=== PATIENT | female | born 1970 | race African-American/Black ===

== ENCOUNTER 2020-08-09 14:20 | Inpatient (IN) | payer MEDICAID ==
[~2020-08-09] VITALS: Ht 167.6 cm; Wt 127.9 kg
--- NOTE | ~2020-08-09 | EMS ---
[address] [place] [address] EMS Patient Care Report Name: DYLON GAMBOA Room: [place] [address] ADM IN [facility]#: [id number] Admission: 08/09/20 Attend Phys: Lexx Cohen MD Discharge: Date of : 66 Report #: [id number] THIS REPORT FOR: //name// Report Transmitted: 08/09/2020 15:16 EMS Care Summary [facility] Incident [id number] @ 08/09/2020 13:34 Incident Location [address] [place] [address] Patient DYLON GAMBOA Female, 50 Years 1970 Patient Address [address] [place] [address] Patient History Stroke/CVA,Myocardial Infarction (NM),Novel Coronavirus (COVID-19), Patient Allergies Penicillin allergy,Sulfur allergy, Patient Medications Eliquis, Atorvastatin, Chief Complaint Stroke Disposition Transported Lights/[place] Dispatch Reason Sick Person Transported To [facility] Narrative Dispatch: [facility] was dispatched for a female patient experiencing generalized weakness. Med 1 copied tones and went en route emergent. Chief Complaint: Med 1 arrived on scene to find the patient lying supine in her [facility] [address] [place] [address] EMS Patient Care Report Name: DYLON GAMBOA Room: [address] IN [facility]#: [id number] Admission: 08/09/20 Attend Phys: Lexx Cohen MD Discharge: Date of : 66 Report #: [id number]. Patient has prominate left sided facial droop. Patient is alert and does not appear to be in any distress or discomfort. Patient is unable to answer questions appropriately and has slurred speech. Positive MEND and [place] exam. History of present illness/CRWO: Patient's family states the onset of symptoms were on 08/08/20 at approx. 9 am. The family states the patient has been unable to eat or drink in the last 24 hours without vomiting. Assessment: Airway: Clear, patent, and self maintained. Breathing: Clear, and equal bilaterally. Non labored. Circulation: Skin is pink, warm, and dry. Strong radial pulses. Disability: A&OX2, GCS 13. Exposures: No life threats were found. See "assessments" tab for further. Reason for ambulance: Patient experiencing generalized weakness, requesting EMS treatment and transport to the ED. Treatments: ALS assessment. Two IV attempts both unsuccessful. 12 lead EKG showing normal sinus rhythm. 2 liters O2 nasal cannula. Vitals monitored throughout transport. Summary: With the assistance of EMS and Fire, the patient placed onto the paulina machinery mover and carried out of the residence without incident. The patient was placed onto the cot, secured in place, and placed into the ambulance for transport. Med 1 went en route emergent to [place]. The patient was placed onto the monitor and an IV was attempted but unsuccessful. The patient's overall condition remained the same throughout transport. Radio report was given and a stroke activation was established. No further questions or orders were received. Med 1 arrived at destination and the patient was taken to CT where she was sheet transferred onto the CT scan. Report was given and signatures and paperwork were received. Med 1 returned back in service. Initial Vitals @14:24BP: 102/80, @14:06BP: 120/83,NM Suspected: false @14:13SpO2: 99,NM Suspected: false @14:25P: 110,BP: 108/65,NM Suspected: false @14:22 @14:00SpO2: 100,NM Suspected: false @13:54R: 18,BP: 130/90,GCS: 13,Temp: 98.7F,Glucose: 140,SpO2: 99,Revised Trauma: 12, [place] [address] EMS Patient Care Report Name: DYLON GAMBOA Room: [address] IN [facility]#: [id number] Admission: 08/09/20 Attend Phys: Lexx Cohen MD Discharge: Date of : 66 Report #: [id number] @13:46MENTAL:Confused,Person Oriented,Event Oriented,SKIN:HEENT:Head/Face: Facial Droop,LUNG SOUNDS:ABDOMEN:PELVIS//GI:EXTREMITIES:Capillary Refill: Right Upper: < 2 Sec,Left Leg: Weakness,Left Arm: Weakness,PULSE:Radial: 2+ Normal,NEURO:Facial Droop,Weakness Left-Sided,Slurred Speech,@14:10MENTAL:Confused,Person Oriented,Event Oriented,SKIN:HEENT:Head/Face: Facial Droop,LUNG SOUNDS:ABDOMEN:PELVIS//GI:EXTREMITIES:Left Leg: Weakness,Capillary Refill: Right Upper: < 2 Sec,Left Arm: Weakness,PULSE:Radial: 2+ Normal,NEURO:Weakness Left-Sided,Facial Droop,Slurred Speech, Impression Stroke Procedures @13:46ALS AssessmentResponse: UnchangedSucceeded@14:08Oxygen FlowRate: 2 Device: Nasal Cannula (NC) Response: UnchangedSucceeded@14:03Saline Lock 0cc (20 ga) Site: Hand-LeftResponse: UnchangedFailed@14:10Saline Lock 0cc (20 ga) Site: Antecubital-RightResponse: UnchangedFailed@14:2512-Lead ECGResponse: UnchangedSucceeded@14:0612-Lead ECGResponse: UnchangedSucceeded Timeline 13:34,Call Received 13:34,Dispatched 13:35,En Route 13:44,On Scene 13:45,At Patient 13:46,ALS Assessment,Response: UnchangedSucceeded, 13:54,BP: 130/90 M,PULSE: ,RR: 18 R,SPO2: 99 Ox,ETCO2: ,B,PAIN: ,GCS: 13, 13:59,Depart Scene 14:00,BP: / M,PULSE: ,RR: R,SPO2: 100 Ox,ETCO2: ,BG: ,PAIN: ,GCS: , 14:03,Saline Lock 0cc 20 ga Site: Hand-Left,Response: UnchangedFailed, 14:06,12-Lead ECG,Response: UnchangedSucceeded, 14:06,BP: 120/83 M,PULSE: ,RR: R,SPO2: Ox,ETCO2: ,BG: ,PAIN: ,GCS: , 14:08,Oxygen FlowRate: 2 Device: Nasal Cannula (NC) Response: UnchangedSucceeded, 14:10,Saline Lock 0cc 20 ga Site: Antecubital-Right,Response: UnchangedFailed, 14:13,BP: / M,PULSE: ,RR: R,SPO2: 99 Ox,ETCO2: ,BG: ,PAIN: ,GCS: , 14:22,BP: / M,PULSE: ,RR: R,SPO2: Ox,ETCO2: ,BG: ,PAIN: ,GCS: , 14:24,BP: 102/80 M,PULSE: ,RR: R,SPO2: Ox,ETCO2: ,BG: ,PAIN: ,GCS: , 14:25,12-Lead ECG,Response: UnchangedSucceeded, 14:25,BP: 108/65 M,PULSE: 110,RR: R,SPO2: Ox,ETCO2: ,BG: ,PAIN: ,GCS: , 14:28,At Destination 15:25,Call Closed Disclaimer v1.1 Copyright 2020 [place] [address] EMS Patient Care Report Name: DYLON GAMBOA Tyra Room: [address] IN [facility]#: [id number] Admission: 08/09/20 Attend Phys: Lexx Cohen MD Discharge: Date of : 66 Report #: [id number] This EMS Care Summary contains data elements from the applicable legal record (which may be displayed differently). It is designed to provide pertinent information for the following purposes: continuity of care, clinical quality, and state data reporting. The complete legal record is available to ED staff and administrators of the receiving hospital in [facility]'s Patient Tracker. All data is provided "as is."
--- NOTE | ~2020-08-09 | PROC ---
[address] [address] PROCEDURE REPORT Name: DYLON GAMBOA Room: [address] ADM IN M.R.#: [id number] Admission: 08/09/20 Attend Phys: Lexx Cohen MD Discharge: Date of : 66 Report #: [id number] THIS REPORT FOR: cc: FAM - No family physician/PCP FAM - No family physician/PCP ~ [facility],Medical Records Staff For GI report, please see the Provation report in Perceptive 7 content. By: [id number] Records Staff NATIVID[place] /DIANELYS
--- NOTE | ~2020-08-09 | PROC ---
[address] [address] PROCEDURE REPORT Name: DYLON GAMBOA Room: [address] IN M.R.#: [id number] Admission: 08/09/20 Attend Phys: Lexx Cohen MD Discharge: Date of : 66 Report #: [id number] THIS REPORT FOR: cc: FAM - No family physician/PCP FAM - No family physician/PCP ~ [facility],Medical Records Staff For Gi report, please see the Provation report in Perceptive 7 content. By: 1407Medical Records Staff NATIVID[place] /DIANELYS
[2020-08-09 14:30] VITALS: BP 110/67
[2020-08-09] MEDS ORDERED: ELIQUIS2.5 MG (15:06)
[2020-08-09] MEDS ORDERED: LIPITOR10 MG PO (15:06)
[2020-08-09 15:11] LABS: HEMATOCRIT 36.2 % (37.0-47.0); HEMOGLOBIN 11.7 gm/dL (12.0-15.0); MCH 28.4 pg (26.0-34.0); MCHC 32.2 g/dL (28.0-37.0); NUCLEATED RBCS 0 /100WBC; PLATELET COUNT* 353 thou/uL (150-400); RBC 4.12 mil/uL (4.20-5.00); RDW-CV 15.2 % (10.5-14.5); WBC 20.7 thou/uL (4.0-11.0)
[2020-08-09 15:22] LABS: CALCIUM 8.9 mg/dL (8.5-10.1)
[2020-08-09 15:23] LABS: APTT 21.2 Seconds (25.0-31.3); INR 1.1; PROTIME 11.8 Seconds (9.20-11.50)
[2020-08-09 15:25] LABS: POTASSIUM 2.6 mmol/L (3.5-5.1)
[2020-08-09 15:27] LABS: ALBUMIN 2.3 g/dL (3.4-5.0); TOTAL PROTEIN 6.3 g/dL (6.4-8.2)
[2020-08-09 15:31] LABS: ABSOLUTE EOSINOPHILS 0.2 thou/uL (0.0-0.7); ABSOLUTE LYMPHOCYTES 3.7 thou/uL (0.8-5.3); ABSOLUTE MONOCYTES 0.2 thou/uL (0.0-1.2); ABSOLUTE NEUTROPHILS 16.6 thou/uL (1.6-8.1); ATYPICAL LYMPHS 1 %; PLATELET ESTIMATE ADEQUATE
--- NOTE | 2020-08-09 16:15 | NUR ---
PT'S SISTER,RUSTY IS PRESENT AT THIS TIME. RUSTY STATED THAT PT "HAD A HEART ATTACK LAST YEAR AND HAS HAD SEVEN STROKES". PT'S SISTER,RUSTY ALSO STATED THAT SHE "HAD A FISTULA PLACED IN HER RT ARM LAST YEAR BUT IT HAS NEVER WORKED AND IT HAS NEVER BEEN ACCESSED". PT'S SISTER STATED THAT "LAST YEAR, SHE WAS AT [employer] FOR HER [place] LAST YEAR AND WAS DROPPED OFF AT MY HOUSE WHEN SHE LEFT [employer]EARCH". PT'S SISTER STATES THAT SHE "IS HER PRIMARY CAREGIVER". PT'S SISTER ALSO STATED THAT SHE "WORKS FOR A HOME HEALTHCARE SERVICE". PT'S SISTER STATES THAT SHE "TRIED TO CALL HER HOME HEALTHCARE SERVICE TO HELP WITH MY SISTER TODAY BUT I COULDN'T GET AHOLD OF ANYONE SO I CALLED THE DIVISION OF SENIOR SERVICES". RUSTY STATED THAT SHE SPOKE WITH "MILLY BRAXTON [phone]". RUSTY STATED THAT WE "CAN CALL MILLY IF WE NEED MORE INFORMATION".
[2020-08-09] MEDS ORDERED: LOPRESSOR50 MG PO (16:33)
[2020-08-09] MEDS ORDERED: LIPITOR 20 MG T20 M1 PO (16:33)
[2020-08-09] MEDS ORDERED: ELIQUIS5 MG PO (16:33)
--- NOTE | 2020-08-09 17:00 | NUR ---
THIS NURSE NOTIFIED DR. GORDON OF FISTULA PRESENT TO R UPPER ARM. PER DR. GORDON "IT IS OKAY TO USE IVs IN THAT ARM".
[2020-08-09 19:00] VITALS: BP 114/72
[2020-08-09 20:57] VITALS: BP 92/72
[2020-08-09 21:15] VITALS: BP 105/70
[2020-08-10 00:05] VITALS: BP 111/68
[2020-08-10 05:03] VITALS: BP 130/82
[2020-08-10 06:18] LABS: URINE BLOOD 2+ (Negative); URINE CLARITY CLOUDY; URINE COLOR YELLOW; URINE GLUCOSE-RANDOM NEGATIVE (Negative); URINE KETONES TRACE (Negative); URINE NITRITE-REFLEX NEGATIVE (Negative); URINE PROTEIN 3+ (Negative); URINE SPECIFIC GRAVITY 1.025 (1.005-1.030); URINE UROBILINOGEN 0.2 E.U./dl (0.2-1.0)
[2020-08-10 06:32] LABS: URINE BILIRUBIN 1+ (Negative); URINE LEUKOCYTES-REFLEX 2+ (Negative)
[2020-08-10 06:37] LABS: ICTOTEST (BILI CONFIRMATORY) Negative (Negative)
[2020-08-10 07:12] LABS: SQUAMOUS >10 Many /LPF (0-3)
[2020-08-10 07:14] LABS: CASTS None Seen /LPF (None Seen); URINE RBC 3-10 Few /HPF (0-2); URINE WBC-REFLEX >25 Many /HPF (0-5)
[2020-08-10 07:15] LABS: CRYSTALS None Seen /LPF (None Seen); YEAST-REFLEX Present (None Seen)
--- NOTE | 2020-08-10 07:15 | NUR ---
CHANGE OF SHIFT REPORT GIVEN PATIENT SEEN AT BEDSIDE, IN BED ASSUMED PATIENT CARE
[2020-08-10 07:16] LABS: RENAL EPITHELIAL CELLS 0-3 Few /LPF (None Seen)
[2020-08-10 08:00] VITALS: BP 128/62
--- NOTE | 2020-08-10 08:41 | NUR ---
RECEIVED PT FROM ED AT APPROX 2114. PT IS AWAKE, ORIENTED TO SELF, ABLE TO FOLLOW SIMPLE COMMANDS, ABLE TO ANSWER YES AND NO QUESTIONS. PT IS RACING ST ON THE APPEALS SPECIALIST. NIH DONE CHARTED. PT MAINTAINED NPO FOR SPEECH EVAL. ADMISSION ASSESSMENT DONE AND CHARTED. POSITION CHANGES DONE. CALL LIGHT WITHIN REACH. PT IS CLOSELY MONITORED. ELECTROLYTE REPLETION IN PROGRESS.
[2020-08-10 09:41] LABS: ABSOLUTE BASOPHILS 0.1 thou/uL (0.0-0.2); ABSOLUTE EOSINOPHILS 0.1 thou/uL (0.0-0.7); ABSOLUTE LYMPHOCYTES 4.1 thou/uL (0.8-5.3); ABSOLUTE NEUTROPHILS 17.7 thou/uL (1.6-8.1); BASOPHILS 0.5 %; EOSINOPHILS 0.4 %; HEMATOCRIT 33.9 % (37.0-47.0); HEMOGLOBIN 10.6 gm/dL (12.0-15.0); LYMPHOCYTES 17.7 %; MCH 28.2 pg (26.0-34.0); MCHC 31.3 g/dL (28.0-37.0); MCV 89.9 fL (80.0-100.0); MONOCYTES 4.2 %; MPV 8.8 fl. (7.2-11.1); NUCLEATED RBCS 0 /100WBC; PLATELET COUNT* 316 thou/uL (150-400); POLYS 77.2 %; RBC 3.77 mil/uL (4.20-5.00); RDW-CV 15.1 % (10.5-14.5); WBC 22.9 thou/uL (4.0-11.0)
[2020-08-10 11:18] LABS: CHOLESTEROL 283 mg/dL (<200); HDL CHOLESTEROL 32 mg/dL (>40); LDL CHOLESTEROL 197 mg/dL (<100); SERUM ASSESSMENT Clear; TC:HDL 8.8 Ratio (Not establshd); TRIGLYCERIDE 273 mg/dL (<150); VLDL 55 mg/dL (<40)
--- NOTE | 2020-08-10 11:48 | NUR ---
CM ATTEMPTED TO SPEAK TO THE PT TO DISCUSS CM ASSESSMENT. PT AWAKE, BUT NOT RESPONDING TO QUESTIONS WHEN ASKED. CM CONACTED PT'S SISTER TO DISCUSS CM ASSESSMENT AND SHE INFORMS THAT THE PT RESIDES AT HOME WITH HER AND SHE PROVIDES TOTAL CARE (BATHING, DRESSING, TOILETING) FOR THE PT. PT'S SISTER INFORMS THAT THE PT IS NORMALLY ABLE TO FEED HERSELF. PT IS BEDBOUND AT HOME, PER THE SISTER 'SHE BELIEVES THAT SHE IS UNABLE TO MOVE HER LEGS'. PT HAS WHEELCHAIR, WALKER, AND CANE AT HOME. PT HAS 0 HX OF HH. PT HAS HX OF SNF PER SISTER THAT SHE 'HAD SPENT 8 YEARS AT A FACILITY IN [place] TRYING TO GET HER TO WALK'. PT'S SISTER INFORMS THAT THE PT WAS MORE ABLE BODIED PRIOR TO HAVING COVID IN JANUARY-MAR. PT ALSO DOES NOT HAVE A PCP PER SISTER 'PT'S PCP RECENTLY '. PT/OT/ST AU PENDING. CM WILL REMAIN AVAILABLE TO ASSIST AND FOLLOW NEEDED.
[2020-08-10 11:56] LABS: CALCIUM 8.6 mg/dL (8.5-10.1); CREATININE 5.1 mg/dL (0.6-1.3); POTASSIUM 3.5 mmol/L (3.5-5.1)
[2020-08-10 12:00] VITALS: BP 129/73
--- NOTE | 2020-08-10 14:40 | EKG ---
[place] [address] ELECTROCARDIOGRAM REPORT Name: DYLON GAMBOA Room: [address] ADM IN [facility]#: [id number] Admission: 08/09/20 Attend Phys: Lexx Cohen, Discharge: Date of : 66 Date of Service: 08/09/20 1449 Report #: [id number] THIS REPORT FOR: //name// [facility] ED Test Date: 2020-08-09 Test Time: 14:49:23 Pat Name: DYLON GAMBOA Department: Room: [facility] Gender: F Multifocal Button Generator: IVY : 1970 Requested By: Andres Nolasco Order Number: [id number] MD: Milo Kirkpatrick Measurements Intervals [place] Rate: 106 P: MO: QRS: -49 QRSD: 112 T: 32 QT: 384 QTc: 510 Interpretive Statements Sinus tachycardia Left axis deviation anterolateral infarct, old Prolonged QT interval Artifact in lead(s) I,II,aVR,aVL,V1 No previous ECG available for comparison Electronically Signed On 08-10-2020 14:40:00 OIL WELL SERVICE UNIT OPERATOR by Milo Kirkpatrick [email or web address] <ELECTRONICALLY SIGNED> By: Milo Kirkpatrick MD, FAC 08/10/20 1440 1449 1449 Milo Kirkpatrick MD, [facility] /EPI
[2020-08-10 15:58] VITALS: BP 130/73
[2020-08-10 21:00] VITALS: BP 143/80
[2020-08-11 03:06] LABS: GLYCOHEMOGLOBIN (HGB A1C) 5.2 % (4.8-5.6)
[2020-08-11 04:00] VITALS: BP 98/65
--- NOTE | 2020-08-11 05:33 | NUR ---
No acute event overnight. Beginning of shift pt yelling, confused. Pt refused PO meds, refused oral care. Around 2200 to 0500 pt able to get sleep. Reposition maintained. Antibiotic given per mar, IVF infusing as ordered. Safety precaution in placed.
[2020-08-11 07:30] VITALS: BP 123/71
[2020-08-11 08:27] LABS: ABSOLUTE BASOPHILS 0.1 thou/uL (0.0-0.2); ABSOLUTE EOSINOPHILS 0.2 thou/uL (0.0-0.7); ABSOLUTE LYMPHOCYTES 4.1 thou/uL (0.8-5.3); ABSOLUTE MONOCYTES 0.9 thou/uL (0.0-1.2); ABSOLUTE NEUTROPHILS 12.4 thou/uL (1.6-8.1); BASOPHILS 0.7 %; EOSINOPHILS 1.2 %; HEMATOCRIT 31.1 % (37.0-47.0); HEMOGLOBIN 9.9 gm/dL (12.0-15.0); LYMPHOCYTES 23.2 %; MCH 28.1 pg (26.0-34.0); MCHC 31.7 g/dL (28.0-37.0); MCV 88.6 fL (80.0-100.0); MPV 8.8 fl. (7.2-11.1); NUCLEATED RBCS 0 /100WBC; PLATELET COUNT* 301 thou/uL (150-400); POLYS 69.9 %; RBC 3.51 mil/uL (4.20-5.00); RDW-CV 15.2 % (10.5-14.5); WBC 17.7 thou/uL (4.0-11.0)
[2020-08-11 08:42] LABS: ALBUMIN 1.9 g/dL (3.4-5.0); ALKALINE PHOSPHATASE 101 U/L (46-116); ANION GAP 12 mmol/L (7-16); BUN 69 mg/dL (7-18); CALCIUM 8.2 mg/dL (8.5-10.1); CHLORIDE 110 mmol/L (98-107); CO2 27 mmol/L (21-32); CREATININE 4.6 mg/dL (0.6-1.3); GLUCOSE 105 mg/dL (70-99); POTASSIUM 3.2 mmol/L (3.5-5.1); SGOT 12 U/L (15-37); SODIUM 149 mmol/L (136-145); TOTAL BILIRUBIN 0.9 mg/dL (<0.1-1.0); TOTAL PROTEIN 5.6 g/dL (6.4-8.2)
[2020-08-11 08:55] LABS: SGPT < 6 U/L (30-65)
[2020-08-11 12:00] VITALS: BP 130/72
--- NOTE | 2020-08-11 18:57 | NUR ---
UNABLE TO OBTAIN IV ACCESS AFTER MULTIPLE ATTEMPTS BY MULTIPLE RN'S. NOTIFIED DR GORDON. ORDERS RECEIVED FOR CENTRAL LINE PLACEMENT AND CONSENT OBTAINED BY PATIENTS SISTER. ANESTHESIA CAME IN TO PLACE LINE BUT WAS UNABLE TO OBTAIN CENTRAL ACCESS SUCCESSFULLY. EXTERNAL JUGULAR PLACED IN PATIENT RIGHT JUGULAR. CONTINUOUS IV FLUIDS NOT INFUSING DUE TO THE NATURE OF THE IV ACCESS AND UNCERTAINTY OF PLACEMENT. PLANNING FOR BETTER ACCESS TOMORROW WITH SALES & SERVICE ASSOCIATE JEFF IS HERE.
[2020-08-11 21:00] VITALS: BP 133/72
[2020-08-12] VITALS: BP 140/71
[2020-08-12 04:00] VITALS: BP 139/78
[2020-08-12 04:44] LABS: ABSOLUTE BASOPHILS 0.1 thou/uL (0.0-0.2); ABSOLUTE EOSINOPHILS 0.4 thou/uL (0.0-0.7); ABSOLUTE LYMPHOCYTES 4.2 thou/uL (0.8-5.3); ABSOLUTE MONOCYTES 0.9 thou/uL (0.0-1.2); ABSOLUTE NEUTROPHILS 10.5 thou/uL (1.6-8.1); BASOPHILS 0.8 %; EOSINOPHILS 2.4 %; HEMATOCRIT 29.7 % (37.0-47.0); HEMOGLOBIN 9.2 gm/dL (12.0-15.0); LYMPHOCYTES 26.1 %; MCH 27.9 pg (26.0-34.0); MCHC 31.1 g/dL (28.0-37.0); MCV 89.7 fL (80.0-100.0); MONOCYTES 5.3 %; MPV 8.9 fl. (7.2-11.1); NUCLEATED RBCS 0 /100WBC; PLATELET COUNT* 295 thou/uL (150-400); POLYS 65.4 %; RBC 3.31 mil/uL (4.20-5.00); RDW-CV 15.3 % (10.5-14.5); WBC 16.1 thou/uL (4.0-11.0)
--- NOTE | 2020-08-12 05:20 | NUR ---
No acute event this shift. Pt refused oral meds. Pt not given IV antibiotic due to route unavailable. Pt plan to see catastrophe claims supervisor to check IV patency/ placed a central line. Pt sleep most of the night. Reposition Q2, VS stable. Will contine POC.
[2020-08-12 06:25] LABS: ALBUMIN 1.9 g/dL (3.4-5.0); ALKALINE PHOSPHATASE 97 U/L (46-116); ANION GAP 12 mmol/L (7-16); BUN 67 mg/dL (7-18); CALCIUM 8.7 mg/dL (8.5-10.1); CHLORIDE 110 mmol/L (98-107); CO2 26 mmol/L (21-32); CREATININE 4.6 mg/dL (0.6-1.3); GLUCOSE 75 mg/dL (70-99); POTASSIUM 3.5 mmol/L (3.5-5.1); SGOT 13 U/L (15-37); SGPT < 6 U/L (30-65); SODIUM 148 mmol/L (136-145); TOTAL BILIRUBIN 0.8 mg/dL (<0.1-1.0); TOTAL PROTEIN 5.4 g/dL (6.4-8.2)
[2020-08-12 08:00] VITALS: BP 127/62
--- NOTE | 2020-08-12 10:32 | NUR ---
Nutrition: Pt admitted with code stroke, slurred speech. Consult for wound. Pt has wound on LUE. Chopped diet, per ST. Wts are variable in [facility], bed wts, 239# and 217# - will follow trends. Labs: BG 107-75, BUN 67, cr 4.6, GFR 12, alb 1.9, prealb 15.2. H/o CVA, UT, CKD. Unknown renal baseline at this time. No meal intake records. 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 Will follow pe rprotocol. Consider mild risk. GOALS: >75% of meals consumed, wt stabilize. F/u 08/16/20.
--- NOTE | 2020-08-12 11:27 | NUR ---
CM INFORMED DURING PRIME ROUNDING OF THE PLAN OF CARE FOR THE PT. PHYSICIAN INFORMS THAT THE PT MAY NEED PLACEMENT AT D/C (LTC VS HOME). PT HAS MEDICAID ONLY INSURANCE AND IS UNABLE TO HAVE SNF PLACEMENT OR HH AT D/C. PT'S SISTER PROVIDED ALL CARES PRIOR TO ADMIT. CM WILL REMAIN AVAILABLE TO ASSIST AND FOLLOW FOR D/C PLANNING NEEDED.
[2020-08-12 12:00] VITALS: BP 129/78
[2020-08-12 16:11] VITALS: BP 120/73
--- NOTE | 2020-08-12 16:14 | 2DMMODE ---
[place] [address] 2 D/M-MODE ECHOCARDIOGRAM Name: YANG GAMBOAE Tyra Room: [address] IN .Tyra.#: [id number] Admission: 08/09/20 Attend Phys: Lexx Cohen, Discharge: Date of : 66 Date of Service: 08/12/20 1614 Report #: [id number] THIS REPORT FOR: cc: FAM - No family physician/PCP FAM - No family physician/PCP Maximilian Mcbride MD [facility] ~ APPROVED REPORT Study performed: 08/12/2020 13:56:12 EXAM: Comprehensive 2D, Doppler, and color-flow Echocardiogram Patient Location: In-Patient Room #: [facility] Status: routine BSA: 2.05 HR: 86 bpm BP: 127/62 mmHg Rhythm: NSR Other Information Study Quality: Good Indications CVA/TIA Echo Enhancing Agent Indication: Rule out Shunt Agent(s) / Amount(s) Used: Agitated Saline 10 cc 2D Dimensions IVSd: 10.45 (7-11mm) LVOT Diam: 20.56 (18-24mm) LVDd: 35.61 mm PWd: 8.12 (7-11mm) Ascending Ao: 27.57 (22-36mm) LVDs: 24.96 (25-40mm) Aortic Root: 29.22 mm Volumes Left Atrial Volume (Systole) LA ESV Index: 14.50 mL/m2 Aortic Valve AoV Peak Yvon.: 1.16 m/s AO Peak Gr.: 5.39 mmHg LVOT Max P.69 mmHg AO Mean Gr.: 3.03 mmHg LVOT Mean P.01 [place] [address] 2 D/M-MODE ECHOCARDIOGRAM Name: DYLON GAMBOA Room: [address] IN .R.#: [id number] Admission: 08/09/20 Attend Phys: Lexx Cohen, Discharge: Date of : 66 Date of Service: 08/12/20 1614 Report #: [id number] LVOT Max V: 0.65 m/s AO V2 VTI: 21.49 cm LVOT Mean V: 0.49 m/s PATRICK (VTI): 1.90 cm2 LVOT V1 VTI: 12.32 cm Mitral Valve E/A Ratio: 0.75 MV Decel. Time: 176.12 ms MV E Max Yvon.: 0.63 m/s MV PHT: 51.07 ms MVA (PHT): 4.31 cm2 TDI E/Lateral E': 12.60 E/Medial E': 10.50 Medial E' Yvon.: 0.06 m/s Lateral E' Yvon.: 0.05 m/s Pulmonary Valve PV Peak Yvon.: 0.85 m/s PV Peak Gr.: 2.89 mmHg Tricuspid Valve RAP Estimate: 5.00 mmHg TR Peak Gr.: 29.32 mmHg RVSP: 34.00 mmHg PA Pressure: 34.00 mmHg Left Ventricle The left ventricle is normal size. There is normal LV segmental wall motion. There is normal left ventricular wall thickness. Left ventricular systolic function is normal. The left ventricular ejection fraction is within the normal range. LVEF is 55-60%. Grade I - abnormal relaxation pattern. Right Ventricle The right ventricle is normal size. The right ventricular systolic function is normal. Atria The left atrium size is normal. The interatrial septum is intact with no evidence for an atrial septal defect. The right atrium size is normal. Aortic Valve The aortic valve is normal in structure. No aortic regurgitation is present. There is no aortic valvular stenosis. Mitral Valve The mitral valve is normal in structure. [place] [address] 2 D/M-MODE ECHOCARDIOGRAM Name: DYLON GAMBOA Room: [address] IN .R.#: [id number] Admission: 08/09/20 Attend Phys: Lexx Cohen, Discharge: Date of : 66 Date of Service: 08/12/20 1614 Report #: [id number] No evidence of mitral valve stenosis. Tricuspid Valve The tricuspid valve is normal in structure. Mild tricuspid regurgitation. estimated pa pressure 35 mm Hg Pulmonic Valve The pulmonary valve is normal in structure. There is no pulmonic valvular regurgitation. Great Vessels The aortic root is normal in size. IVC is normal in size and collapses >50% with inspiration. Pericardium There is no pericardial effusion. <Conclusion> LVEF is 55-60%. The interatrial septum is intact with no evidence for an atrial septal defect. Mild tricuspid regurgitation. estimated pa pressure 35 mm Hg <ELECTRONICALLY SIGNED> By: Maximilian Mcbride MD, FACC 08/12/20 1614 1614 1614 Maximilian Mcbride MD, FACC /INF
--- NOTE | 2020-08-12 18:09 | NUR ---
PT RESTING IN BED. REFUSES MEALS AND COVERS HER MOUTH WHEN FOOD OFFERED. DRINKS WATER. REFUSES ORAL CARE. PT RELUCTANT TO TAKE PILLS OR ALLOW STAFF TO REPOSITION HER BUT DOES SO AFTER SOME DISCUSSION. NSR. PT/OT WORKED WITH PT. CHU CATH DRAINING CLOUDY YELLOW URINE. IVF INFUSING. SISTER UPDATED ON PT STATUS. PT A&OX4 BUT FREQUENTLY CALLS OUT "HELP!" WILL NOT SAY WHAT SHE WANTS WHEN STAFF RESPONDS.
[2020-08-12 20:00] VITALS: BP 106/61
[2020-08-13] VITALS (8 sets, daily range): BP systolic 126–145; BP diastolic 70–90
[2020-08-13 04:14] LABS: ABSOLUTE BASOPHILS 0.1 thou/uL (0.0-0.2); ABSOLUTE EOSINOPHILS 0.5 thou/uL (0.0-0.7); ABSOLUTE LYMPHOCYTES 3.4 thou/uL (0.8-5.3); ABSOLUTE MONOCYTES 0.6 thou/uL (0.0-1.2); ABSOLUTE NEUTROPHILS 8.9 thou/uL (1.6-8.1); BASOPHILS 0.9 %; EOSINOPHILS 3.7 %; HEMATOCRIT 26.6 % (37.0-47.0); HEMOGLOBIN 8.5 gm/dL (12.0-15.0); LYMPHOCYTES 25.1 %; MCH 28.6 pg (26.0-34.0); MCV 89.3 fL (80.0-100.0); MONOCYTES 4.6 %; MPV 8.8 fl. (7.2-11.1); NUCLEATED RBCS 0 /100WBC; PLATELET COUNT* 274 thou/uL (150-400); POLYS 65.7 %; RBC 2.98 mil/uL (4.20-5.00); RDW-CV 15.4 % (10.5-14.5); WBC 13.5 thou/uL (4.0-11.0)
[2020-08-13 04:37] LABS: CALCIUM 8.3 mg/dL (8.5-10.1); POTASSIUM 3.3 mmol/L (3.5-5.1)
--- NOTE | 2020-08-13 07:05 | NUR ---
ASSUMED PT CARE AT APPROX 1930. PT IS AWAKE, ORIENTED TO SELF AND PLACE. PT IS ABLE TO ANSWER SOME QUESTIONS BUT REFUSES/UNABLE TO ANSWER MOST QUESTIONS. PT IS NOT IN DISTRESS, NO DESATURATIONS NOTED ON ROOM AIR. PT IS TRACING SR ON THE TAPER MACHINE. NO ACUTE CHANGES THROUGHOUT THIS SHIFT. CALL LIGHT WITHIN REACH. HOURLY ROUNDING DONE FOR PT SAFETY. HIGH FALL PRECAUTIONS IN PLACE.
--- NOTE | 2020-08-13 08:35 | NUR ---
WOUND NURSE: PATIENT SEEN TO ADDRESS SKINI LESIONS ON LEFT ARM AND AXILLARY AREA. SMALL ABRASION ON LEFT ARM MEASURES 1.0 X 1.0 X 0.1 CM AND CONTAINS PINK NONGRANULATING TISSUE AND NO DRAINAGE. LEFT AXILLARY ABRASION MEASURES 1.0 X 3.0 X 0.1 CM, CONTAINS PINK NONGRANULATING TISSUE, SMALL AMOUNT OF SEROUS DRAINAGE. PERIWOUND AREA PRESENTS WITH DARKENED PIGMENTED SKIN. PATIENT WILL NOT LEAVE AFFECTED AREA CROW AND ATTEMPTS TO SCRATCH AT THE AREA. PATIENT IS CONFUSED AND NONTEACHEABLE. APPLIED PHYTOPLEX AF TO THE AFFECTED AREA. WILL NOT ATTEMPT BANDAGE PATIENT WILL NOT LEAVE THE SITE ALONE. WILL ATTEMPT TO KEEP AREA COVERED WITH BEDDING TO PROTECT FROM SCRATCHING.
--- NOTE | 2020-08-13 14:59 | NUR ---
cm attempted to contact pt sister/caregiver, agel, to discuss discharge plan. vm is full so cm cannot leave vm.
--- NOTE | 2020-08-13 16:30 | NUR ---
CM SPK W/PT'S SISTER, RUSTY RE D/C PLAN. RUSTY INFOMRED CONSUELO FERNANDO W/[facility] [phone] & Nikolas W/[facility] [phone] (NIKOLAS HAS RETIRED AND IS NOT HELPING GET PT PLACED) ARE WORKING TO GET PT PLACED AT [facility] IN [facility] WHERE FAMILY LIVES. FERNANDO STATED SHE IS "NOT COMFORTABLE W HER RTRN'G HOME" D/T NOT BEING ABLE TO SAFELY EXIT HOME IN CASE OF EMERGENCY PT CANNOT WALK OR WONT SPEAK. PER FERNANDO, PT HAS NOT BEEN TO DOCTOR APPT SINCE PCP PASSED IN MAR 2020, AND PT HAS NOT HAD ANY OF HER MEDICATION "FOR HOW LONG?" PER FERNANDO, RUSTY STATED SHE CANNOT GET PT TO DOCTOR APPT D/T STEPS IN [place] AND NOT HAVING HELP TO TRANSPORT. FERNANDO HAD REFERRAL FOR [facility] AND [place], IN [place]. CM TO F/U WITH EACH FACILITY AND FAX CLINICALS NEEDED.
[2020-08-14 04:18] LABS: ABSOLUTE BASOPHILS 0.1 thou/uL (0.0-0.2); ABSOLUTE EOSINOPHILS 0.4 thou/uL (0.0-0.7); ABSOLUTE LYMPHOCYTES 3.8 thou/uL (0.8-5.3); ABSOLUTE MONOCYTES 0.5 thou/uL (0.0-1.2); ABSOLUTE NEUTROPHILS 6.1 thou/uL (1.6-8.1); BASOPHILS 0.8 %; EOSINOPHILS 3.7 %; HEMATOCRIT 24.7 % (37.0-47.0); HEMOGLOBIN 7.9 gm/dL (12.0-15.0); MCH 28.7 pg (26.0-34.0); MCHC 32.1 g/dL (28.0-37.0); MCV 89.6 fL (80.0-100.0); MPV 8.7 fl. (7.2-11.1); NUCLEATED RBCS 0 /100WBC; PLATELET COUNT* 263 thou/uL (150-400); POLYS 55.5 %; RBC 2.76 mil/uL (4.20-5.00); RDW-CV 15.4 % (10.5-14.5)
[2020-08-14 04:20] LABS: ALBUMIN 1.7 g/dL (3.4-5.0); ALKALINE PHOSPHATASE 80 U/L (46-116); ANION GAP 10 mmol/L (7-16); BUN 52 mg/dL (7-18); CALCIUM 8.1 mg/dL (8.5-10.1); CHLORIDE 106 mmol/L (98-107); CO2 25 mmol/L (21-32); CREATININE 3.5 mg/dL (0.6-1.3); GLUCOSE 80 mg/dL (70-99); POTASSIUM 4.2 mmol/L (3.5-5.1); SGOT 12 U/L (15-37); SGPT < 6 U/L (30-65); SODIUM 141 mmol/L (136-145); TOTAL BILIRUBIN 0.6 mg/dL (<0.1-1.0); TOTAL PROTEIN 4.8 g/dL (6.4-8.2)
--- NOTE | 2020-08-14 04:52 | NUR ---
ASSUMED PT CARE AT APPROX 1930. PT IS AWAKE, IS NOT IN DISTRESS, PT IS ABLE TO ANSWER SOME QUESTIONS BUT REFUSES/UNABLE TO ANSWER MOST QUESTIONS. NO DESATURATIONS NOTED ON ROOM AIR. PT IS TRACING SR ON THE AUTOMOTIVE ENGINEERING TEACHER. NO ACUTE CHANGES THROUGHOUT THIS SHIFT. CALL LIGHT WITHIN REACH. PT GETS AGITATED WHEN BEING TURNED/REPOSITIONED. WILL COVER MOUTH WHEN ORAL CARE IS OFFERED. PT IS ABLE TO REST WELL THIS SHIFT. HIGH FALL PRECAUTIONS IN PLACE. PT IS CLOSELY MONITORED.
--- NOTE | 2020-08-14 08:16 | NUR ---
CM FA[facility]ED [facility] RE[facility]ALS [facility]
--- NOTE | 2020-08-14 11:20 | NUR ---
CM INFORMED DURING PRIME ROUNDING OF THE PLAN OF CARE FOR THE PT. PHYSICIAN INFORMS OF PLAN TO D/C PT TO LTC TOMORROW. PRN CM FAXED REFERRALS TO [facility] AND [facility]. CM WILL REMAIN AVAILABLE TO ASSIST AND FOLLOW NEEDED.
[2020-08-14 11:23] VITALS: BP 142/87
--- NOTE | 2020-08-14 14:32 | NUR ---
cm faxed referrals to [facility] [phone] -f. and [facility] in [place]. [phone] -f.
--- NOTE | 2020-08-14 15:00 | NUR ---
PT RESTING.DOES YELL "HELP" FREQUENTLY T/O DAY BUT WHEN ASSESSED AND REQUESTS FULFILLED PT WILL CONTINUE TO YELL FOR HELP EVEN WHEN STILL IN ROOM NEXT TO PATIENT.APPEARS MORE BEHAVIORAL.VSS.VOMITING EPISODES CONTINUE UPON POSITIONING AND WHEN GIVEN DRINKS. SPEECH THERAPY EVAL:PT MAKES A kkAA NOISE AFTER SWALLING AND REPORTS PAIN WHEN SWALLOWING. PT MADE NPO UNTIL AM FOR VIDEO SWALLOW.KUB NEGATIVE. DUE TO WOUND RISK ASSESSMENT AND INABILITY TO REPOSITION PT WITHOUT EMESIS WOULD RECOMMEND LOW AIR LOSS MATTRESS/BARIATRIC FOR PROLONGED STAY. NOTHING FURTHER AT THIS TIME.TM
[2020-08-14 16:11] VITALS: BP 136/79
[2020-08-14 20:00] VITALS: BP 126/66
[2020-08-15 00:09] VITALS: BP 118/76
[2020-08-15 04:25] VITALS: BP 141/81
--- NOTE | 2020-08-15 05:19 | NUR ---
ASSUMED PT CARE AT APPROX 1930. PT IS AWAKE, STILL NOT WILLING TO TAKE PO MEDS, WILL YELL HELP BUT WILL NOT TELL WHAT SHE NEEDS MOST OF THE TIME. PT C/O HEADACHE, NOT RELIEVED AT FIRST BY 25mcg OF FENTANYL, DR GORDON INFORMED AND ONETIME 25mcg MORE OF FENTANYL ORDERED AND GIVEN PER SEP. IV METOPROLOL ADMINISTERED ALSO FOR TACHYCARDIA PT REFUSED TO TAKE PO MEDS. PT IS MAINTAINED ON NPO STATUS WELL. PT IS REPOSITIONED Q2H AND NEEDED FOR COMFORT. HIGH FALL PRECAUTIONS IN PLACE. PT IS CLOSELY MONITORED.
[2020-08-15 05:35] LABS: URINE BILIRUBIN NEGATIVE (Negative); URINE BLOOD 1+ (Negative); URINE CLARITY CLEAR; URINE COLOR YELLOW; URINE GLUCOSE-RANDOM NEGATIVE (Negative); URINE KETONES TRACE (Negative); URINE NITRITE-REFLEX NEGATIVE (Negative); URINE PROTEIN 2+ (Negative); URINE SPECIFIC GRAVITY 1.015 (1.005-1.030); URINE UROBILINOGEN 0.2 E.U./dl (0.2-1.0)
[2020-08-15 05:36] LABS: URINE LEUKOCYTES-REFLEX 3+ (Negative)
[2020-08-15 05:43] LABS: CASTS None Seen /LPF (None Seen); CRYSTALS None Seen /LPF (None Seen); MUCUS 0-3 Light strn/LPF (None Seen); SQUAMOUS 0-3 Few /LPF (0-3); URINE RBC 3-10 Few /HPF (0-2); YEAST-REFLEX Present (None Seen)
[2020-08-15 08:00] VITALS: BP 138/78
[2020-08-15 08:21] LABS: CALCIUM 8.2 mg/dL (8.5-10.1); CREATININE 3.4 mg/dL (0.6-1.3); POTASSIUM 4.7 mmol/L (3.5-5.1)
--- NOTE | 2020-08-15 11:59 | NUR ---
CM INFORMED DURING PRIME ROUNDING OF THE PLAN OF CARE FOR THE PT. PLAN FOR PT TO REMAIN INPT AT THIS TIME. PLAN FOR PT TO REMAIN ON IV ABT'S. PLAN TO PLACE PICC LINE FOR PT. CM CONTINUES TO ATTEMPT TO FIND LTC PLACEMENT FOR PT. CM RECIEVED A CALLBACK FROM [facility] WITH ADMISSIONS AT [facility] DECLINING PT. CM AWAITING CALLBACK FROM [facility] TO DETERMINE ABILITY TO ACCEPT PT AT D/C. CM WILL REMAIN AVAILABLE TO ASSIST AND FOLLOW NEEDED.
[2020-08-15 16:31] VITALS: BP 161/94
[2020-08-16 04:13] LABS: ABSOLUTE BASOPHILS 0.1 thou/uL (0.0-0.2); ABSOLUTE EOSINOPHILS 0.3 thou/uL (0.0-0.7); ABSOLUTE MONOCYTES 0.6 thou/uL (0.0-1.2); ABSOLUTE NEUTROPHILS 4.8 thou/uL (1.6-8.1); BASOPHILS 0.8 %; EOSINOPHILS 3.1 %; HEMATOCRIT 24.2 % (37.0-47.0); HEMOGLOBIN 7.8 gm/dL (12.0-15.0); MCH 28.6 pg (26.0-34.0); MCV 89.3 fL (80.0-100.0); MONOCYTES 6.5 %; MPV 7.9 fl. (7.2-11.1); NUCLEATED RBCS 0 /100WBC; PLATELET COUNT* 319 thou/uL (150-400); POLYS 48.6 %; RBC 2.71 mil/uL (4.20-5.00); RDW-CV 15.3 % (10.5-14.5); WBC 9.9 thou/uL (4.0-11.0)
[2020-08-16 04:36] LABS: ALBUMIN 1.8 g/dL (3.4-5.0); CALCIUM 8.4 mg/dL (8.5-10.1); CREATININE 3.4 mg/dL (0.6-1.3); MAGNESIUM 1.7 mg/dL (1.8-2.4); POTASSIUM 4.1 mmol/L (3.5-5.1); TOTAL BILIRUBIN 0.5 mg/dL (<0.1-1.0); TOTAL PROTEIN 4.8 g/dL (6.4-8.2)
[2020-08-16 05:12] VITALS: BP 141/81
[2020-08-16 08:00] VITALS: BP 136/51
--- NOTE | 2020-08-16 12:06 | NUR ---
CM INFORMED DURING PRIME ROUNDING OF THE PLAN OF CARE FOR THE PT. PLAN FOR PT TO GET PICC LINE PLACED FOR IV ABT'S. PLAN REMAINS FOR PT TO D/C TO LTC AT D/C. CM CONTINUING TO SECURE LTC PLACEMENT FOR PT. [facility] STILL REVIEWING LTC REFERRAL AND REQUESTING DPOA PAPERWORK FOR PT. CM SPOKE TO PT'S SISTER TO INFORM OF THE NEED TO BRING OR FAX COPY OF DPOA PAPERWORK. PT MAY BE HERE THROUGH THE WEEKEND PENDING PLACEMENT. CM WILL REMAIN AVAILABLE TO ASSIST AND FOLLOW NEEDED.
--- NOTE | 2020-08-16 13:46 | NUR ---
Nutrition: Reassessment. Pt eating chopped diet. D5@ 100mL. Alb 1.8, prealb 14.6. Wt stable, 217#. Will order Magic Cup for added kcal intake. Mild risk.
[2020-08-16 16:00] VITALS: BP 122/67
--- NOTE | 2020-08-16 16:17 | NUR ---
WOUND NURSE: PATIENT SEEN TO ADDRESS REQUEST FOR LOW AIRLOSS MATTRESS ORDERED BY DR. RICHARDSON. PATIENT APPEARS TO HAVE PSYCHOLOGICAL ISSUES WHEREAS SHE IS RESISTENT TO CARES AND COMBATIVE TOWARD NURSING STAFF AND REFUSING TO TURN IN BED AND UNABLE TO TURN HERSELF. PATIENT ALSO WITH LOW ANGELA SCORE AND LEFT SIDED PARALYSIS SO HIGH RISK FOR IMPAIRED SKIN INTEGRETY SHE ALREADY HAS BREAKDOWN. AGREE WITH NEED FOR LOW AIRLOSS MATTRESS. NURSING DESTINATION IMAGINATION COORDINATOR NOTIFIED WITH THIS REQUEST.
[2020-08-16 20:30] VITALS: BP 136/77
--- NOTE | 2020-08-16 20:46 | NUR ---
PT REFUSED SEVERAL VITAL ELEMENTS OF CARE TODAY. PT REFUSED NURSE TO SCAN BRACELET BY TRYING TO BITE ARM OF NURSE. PT C/O HEADACHE AND WAS TOLD THAT SHE COULD NOT RECEIEVE MEDICATION WITHOUT SCANNING BRACELET. PT WAS FINALLY COMPLIANT WITH MEDICATIONS IN AFTERNOON. PT ALSO REFUSED LOW AIR LOSS BED TO WOUND NURSE. WILL NEED TO REEDUCATE. PT DID NOT VOMIT T/O SHIFT AND THOUGH BURPED AND REPORTED BEING NAUSEOUS REPOSITIONING PROVIDED RELIEF. PT DID BEGIN TO SELF HARM TO ARM IN TANTRUM AND WAS EDUCATED ON CURRENT WOUNDS AND HOW SELF INFLICTED WOUNDS CAN BECOME INFECTED. WILL NEED REEDUCATING.PT STILL NOT EATING MUCH AT MEALS. NOTHING FURTHER
[2020-08-17] VITALS: BP 140/78
[2020-08-17 04:00] VITALS: BP 145/80
[2020-08-17 08:00] VITALS: BP 144/85
[2020-08-17 08:05] LABS: HEMATOCRIT 24.8 % (37.0-47.0); HEMOGLOBIN 7.8 gm/dL (12.0-15.0); MCH 28.2 pg (26.0-34.0); MCHC 31.4 g/dL (28.0-37.0); MCV 89.8 fL (80.0-100.0); MPV 8.4 fl. (7.2-11.1); RBC 2.76 mil/uL (4.20-5.00); RDW-CV 15.6 % (10.5-14.5); WBC 9.9 thou/uL (4.0-11.0)
[2020-08-17 08:46] LABS: CALCIUM 8.4 mg/dL (8.5-10.1); CREATININE 3.2 mg/dL (0.6-1.3); MAGNESIUM 1.9 mg/dL (1.8-2.4); POTASSIUM 4.7 mmol/L (3.5-5.1)
--- NOTE | 2020-08-17 10:04 | NUR ---
RECEIVED REPORT AROUND 0715. ASSUMED CARE. IV INTACT RIGHT FOREARM. HEART MONITOR ATTACHED AT SR. VS AND ASSESSMENT CHARTED. PT LYING IN BED. STATED "I HAVE NAUSEA" DENIED WANTING ANYTHING TO HELP WITH THAT. MEDS CRUSHED. GIVEN PER SEP. PT COMPLAINED OF BACK. DENIED WANTING ANYTHING. CALL LIGHT WITHIN REACH. WILL CONTINUE TO MONITOR.
[2020-08-17 16:49] VITALS: BP 156/85
--- NOTE | 2020-08-17 17:39 | NUR ---
NO NEW CHANGES. IV INTACT. HEART MONITOR ATTACHED AT . PT CHANGED TO LOW AIR MATRESS TODAY. PT YELLED OUT "HELP" THROUGHOUT SHIFT, INSTEAD OF USING CALL LIGHT. ORIENTED PT TO CALL LIGHT. PT REPEATED "THE BED IS EATING ME" THROUGHOUT SHIFT. MEDS GIVEN PER SEP. HOURLY ROUNDING PERFORMED. Q2 TURNS. PT LYING IN BED. PT DOES REPEATEDLY SAY "NO" TO THINGS. CALL LIGHT WITHIN REACH. WILL CONTINUE TO MONITOR.
[2020-08-17 20:36] VITALS: BP 161/80
[2020-08-18] VITALS: BP 122/77
[2020-08-18 03:50] VITALS: BP 155/80
[2020-08-18 07:51] VITALS: BP 165/97
--- NOTE | 2020-08-18 09:40 | NUR ---
RECEIVED REPORT AROUND 0715. ASSUMED CARE. IV INTACT RIGHT FOREARM. HEART MONITIOR ATTACHED AT . PT LYING IN BED. LOW AIR MATTRESS BED INTACT. CHU INTACT. PT STATED "LOWER BACK, 7" FOR PAIN. CRUSHED MEDS IN ICECREAM MIXED WITH STRAWBERRY ENSURE. PT SPIT IT OUT. STARTED DRY HEAVING. DID NOT ATTEMPT SECOND BITE. PT DID NOT EAT MUCH BREAKFAST. PT STATES "I'M JUST NOT FEELING WELL." PT DID SPIT UP SOME MORE CONTENT AFTER SPITTING OUT ICECREAM. TRIED TO DRINK SOME NECTAR THICKENED COFFEE. DID NOT SETTLE WELL. CALL LIGHT WITHIN REACH. WILL CONTINUE TO MONITOR.
[2020-08-18 12:00] VITALS: BP 139/85
[2020-08-18 16:00] VITALS: BP 137/82
--- NOTE | 2020-08-18 16:54 | NUR ---
NO NEW CHANGES. PT LYING IN BED. Q2 TURNS. CHU INTACT. IV INTACT. HEART MONTIOR ATTACHED AT SR. PT TAKES HEART MONITOR OFF REPEATEDLY THROUGHOUT SHIFT. PT REFUSED TO EAT. PT CAN FEED SELF. PT STILL HAVING SOME NAUSEA. MEDS GIVEN PER MAR. HOURLY ROUNDING PERFORMED. PT STATED "THE BED IS EATING ME" THROUGHOUT SHIFT. CALL LIGHT WITHIN REACH. WILL CONTINUE TO MONITOR.
[2020-08-18 23:29] VITALS: BP 147/85
[2020-08-19 04:25] VITALS: BP 144/84
[2020-08-19 04:43] LABS: HEMATOCRIT 27.5 % (37.0-47.0); HEMOGLOBIN 8.6 gm/dL (12.0-15.0); MCH 28.2 pg (26.0-34.0); MCHC 31.2 g/dL (28.0-37.0); MCV 90.3 fL (80.0-100.0); MPV 8.5 fl. (7.2-11.1); RBC 3.05 mil/uL (4.20-5.00); RDW-CV 15.8 % (10.5-14.5)
[2020-08-19 05:00] LABS: ALBUMIN 1.8 g/dL (3.4-5.0); CALCIUM 8.7 mg/dL (8.5-10.1); CREATININE 2.7 mg/dL (0.6-1.3); MAGNESIUM 1.6 mg/dL (1.8-2.4); POTASSIUM 4.9 mmol/L (3.5-5.1); TOTAL BILIRUBIN 0.4 mg/dL (<0.1-1.0); TOTAL PROTEIN 4.9 g/dL (6.4-8.2)
[2020-08-19 08:00] VITALS: BP 187/74
--- NOTE | 2020-08-19 10:04 | NUR ---
WOUND NURSE: CHECKED GLUTEAL AREA FOR POSSIBLE WOUNDS AND NONE NOTED WITH INTACT PINK SCAR TISSUE NOTED. LEFT AXILLARY AREA PIGMENTED BUT INTACT SKIN WITH PINK SCAR TISSUE NOTED HERE ALSO. TREATED FOR YEAST AND PATIENT NOW SAYS NO MORE ITCHING TO LEFT ARM AND AXILLA. PATIENT IS NOT TEACHEABLE. ON LOW AIRLOSS MATTRESS DUE TO REFUSAL TO TURN AND HISTORY OF LEFT SIDED PARALYSIS.
--- NOTE | 2020-08-19 12:58 | NUR ---
CM INFORMED DURING PRIME ROUNDING OF THE PLAN OF CARE FOR THE PT. PLAN FOR PT TO REMAIN INPT AT THIS TIME SHE CONTINUES TO NEED IV ABT'S AT THIS TIME. CM RECIEVED A CALL FROM [facility] WITH [facility] AND THEY REQUEST CLINICAL UPDATE WELL PHYSICIAN'S SIGNATURE ON LETTER OF INCAPACITY. PHYSICIAN AGREES TO ASSIST WITH THIS. CM WILL REMAIN AVAILABLE TO ASSIST AND FOLLOW NEEDED.
[2020-08-19 15:29] VITALS: BP 131/65
--- NOTE | 2020-08-19 18:13 | NUR ---
PT RESTING ON HER DAVE BED. PT HAS REFUSED TO TAKE ANY PO FOOD OR FLUIDS. PT HAS BEEN GIVEN REPLACEMENT MAGNESUIM IV. PT HAS A SALINE LOCK IN HER RIGHT FOREARM. DRESSING CLEAN DRY AND INTACT. PT HAS BEEN TURNED AND REPOSITIONED EVERY 2 HOURS AND PRN. PT WILL BE MOVED UP TO THE 3RD FLOOR AFTER SHIFT CHANGE. WILL CONTINUE TO MONITOR PLAN OF CARE.
--- NOTE | 2020-08-19 18:19 | NUR ---
THIS NURSE AGREES WITH ASSESSMENT
[2020-08-19 22:12] VITALS: BP 153/94
--- NOTE | 2020-08-20 00:41 | NUR ---
AR REFUSED ALL MEDS, ATTEMPTED TO OFFER CRUSHED IN FOOD OR DRINK, EXPLAINED BENEFITS OF MEDICATIONS. SHE REFUSED TO EVEN ATTEMPT TO TRY ANY. SHE REFUSED ANY ATTEMPTS AT OFFERING FLUIDS TO DRINK. SHE BECAME AGGRESSIVE WHEN I TRIED TO LOOK AT HER ARM AND PULLED AWAY FROM ME. SHE CALLS OUT FOR HELP AND WE KEEP TURNING HER FOR COMFORT. SHE REFUSES ANY PAIN MEDICATION AT THIS TIME. I TRIED TO COAX WITH PUDDING, SHE WONT EVEN TRY. ATTEMPTS OF AN IV DIFFICULT WELL.
[2020-08-20 08:00] VITALS: BP 165/92
[2020-08-20 16:04] VITALS: BP 130/85
[2020-08-20 16:20] VITALS: BP 138/85
--- NOTE | 2020-08-20 17:07 | NUR ---
THIS NURSE AGREES WITH ASSESSMENT
--- NOTE | 2020-08-20 17:22 | NUR ---
PT CONTINUES TO REFUSE HER MEDICATION. PT WAS DOWN TO THE GI LAB FOR EGD PER BED. GI LAB PLACED A 20GUAGE IN HER RIGHT FOREARM, FLUSHES WELL. PT CONTINUES TO YELL HELP ME ALL THE DAY LONG, BUT CAN NOT TELL YOU WAHT SHE NEEDS HELP WITH. VSS AFEBRILE. WILL CONTINUE TO MONITOR PLAN OF CARE.
--- NOTE | 2020-08-20 18:10 | NUR ---
DISCUSSED WITH IN PRIME TIME ROUNDS. PT.GONE FOR EGD. PLAN IS TO KEEP PT.1-2 MORE DAYS FOR IV ANTIBIOTIC AND TO MAKE SURE PT.CAN TAKE ADEQUATE PO FLUIDS. ATTEMPTED TO CALL SISTER AND TO LEAVE VM. UNABLE TO DO SO.
[2020-08-20 19:49] VITALS: BP 147/89
[2020-08-21 00:47] VITALS: BP 163/85
[2020-08-21 04:28] LABS: HEMATOCRIT 24.5 % (37.0-47.0); HEMOGLOBIN 7.9 gm/dL (12.0-15.0); MCH 28.4 pg (26.0-34.0); MCHC 32.2 g/dL (28.0-37.0); MCV 88.2 fL (80.0-100.0); MPV 8.2 fl. (7.2-11.1); RBC 2.77 mil/uL (4.20-5.00); RDW-CV 15.7 % (10.5-14.5); WBC 16.7 thou/uL (4.0-11.0)
[2020-08-21 04:41] VITALS: BP 126/81
--- NOTE | 2020-08-21 04:46 | NUR ---
PT ORIENTED TO SELF, CONFUSED, IRRITABLE, AND UNCOOPERATIVE. PT HAS REFUSED ALL PO MEDICATIONS THIS SHIFT, DR. GORDON NOTIFIED AT APPROX 2311. PT HAS REFUSED PO FLUIDS. IV IS SALINE LOCKED. URINARY CATHETER IN PLACE, PT REPOSITIONED Q2H. PT HAS SLEPT ON AND OFF THROUGHOUT SHIFT. WILL CONTINUE TO MONITOR.
[2020-08-21 05:01] LABS: ALBUMIN 1.6 g/dL (3.4-5.0); CALCIUM 8.6 mg/dL (8.5-10.1); CREATININE 2.6 mg/dL (0.6-1.3); MAGNESIUM 1.5 mg/dL (1.8-2.4); POTASSIUM 4.6 mmol/L (3.5-5.1); TOTAL BILIRUBIN 0.4 mg/dL (<0.1-1.0); TOTAL PROTEIN 5.1 g/dL (6.4-8.2)
[2020-08-21 08:00] VITALS: BP 172/100
[2020-08-21 16:00] VITALS: BP 129/67
--- NOTE | 2020-08-21 17:25 | NUR ---
THIS NURSE AGREES WITH ASSESSMENT
--- NOTE | 2020-08-21 18:17 | NUR ---
PT RESTING ON HER BED AND REFUSED TO TAKE ANY MEDICATIONS OR EAT ANY BREAKFAST, LUNCH AND DINNER. PT WOULD COVER HER MOUTH AND SMACK HER HAND AT YOU. PT HAS SALINE LOCK IN RIGHT FOREARM, FLUSHES WELL. BP BETTER THIS AFTERNOON AFTER GIVING THE HYDRALIZINE THIS AM. PT TURNED EVERY 2 HOURS. VSS AFEBRILE. WILL CONTINUE TO MONITOR PLAN OF CARE.
[2020-08-21 19:48] VITALS: BP 131/71
[2020-08-22] VITALS: BP 149/87
[2020-08-22 04:00] VITALS: BP 151/88
--- NOTE | 2020-08-22 07:43 | NUR ---
PATIENT'S IV SALINE LOCKED. PT CONTINUES TO REFUSE ANY ORAL INTAKE; ALL PO MEDS AND ORAL FLUIDS REFUSED. PT TACHYCARDIC, PRN METOPROLOL IV GIVEN AT 2003 AND 219. PT DENIES ANY PAIN. URINARY CATHETER IN PLACE, PT REPOSITIONED Q2H.
[2020-08-22 07:45] VITALS: BP 129/84
[2020-08-22 14:21] LABS: URINE BILIRUBIN NEGATIVE (Negative); URINE BLOOD 2+ (Negative); URINE CLARITY CLEAR; URINE COLOR YELLOW; URINE GLUCOSE-RANDOM NEGATIVE (Negative); URINE KETONES NEGATIVE (Negative); URINE NITRITE-REFLEX NEGATIVE (Negative); URINE PROTEIN 2+ (Negative); URINE UROBILINOGEN 0.2 E.U./dl (0.2-1.0)
[2020-08-22 14:24] LABS: URINE LEUKOCYTES-REFLEX 2+ (Negative)
[2020-08-22 14:26] LABS: SQUAMOUS 0-3 Few /LPF (0-3); URINE WBC-REFLEX >25 Many /HPF (0-5)
[2020-08-22 14:27] LABS: CASTS None Seen /LPF (None Seen); CRYSTALS None Seen /LPF (None Seen); MUCUS None Seen strn/LPF (None Seen); YEAST-REFLEX Present (None Seen)
--- NOTE | 2020-08-22 14:43 | NUR ---
FAXED DA12C AND INCAPACITY FORM SIGNED BY TO BERT/ASAD LIASON FOR [facility]. TOLD BERT PT.WAS NOT READY FOR DISCHARGE TODAY, PER . COPY OF DPOA ON CHART AND LISTS IVELISSE GAMBOA,SISTER AGENT.SPOKE WITH HER AT [phone]. INFORMED HER THAT [facility] CAN ACCEPT HER SISTER WHEN SHE IS STABLE FOR DISCHARGE. TOLD HER DID NOT DISCHARGE HER TODAY. SHE IS SPITTING OUT MEDS, NOT TAKING THEM,ETC. WANTS TO SEE IF SHE MIGHT GET MORE AGREEABLE. TOLD HER SHE WAS UP IN THE CHAIR TODAY BY P.T. SHE THANKED ALL THE NURSES FOR TAKING SUCH GOOD CARE OF HER.
[2020-08-22 16:14] VITALS: BP 123/69
--- NOTE | 2020-08-22 17:07 | PATH ---
[address] [address] PATHOLOGY RPT PROCEDURE Name: SHANTANU GAMBOA Tyra Room: [address] IN M.R.#: [id number] Admission: 08/09/20 Date of : 66 Discharge: Report #: [id number] Path Case #: [id number] [facility] Accession Number: [id number] . 01 Material submitted: . gastrointestinal site - GASTRIC BIOPSY . 01 Clinical history: . EGD . 02 Diagnosis: Gastric biopsy "gastric biopsy": - Mild chronic reactive gastropathy with mild chronic inflammation. - The immunoperoxidase stain for Helicobacter pylori is negative. (SHA:pit 08/22/2020) QTP 08/22/2020 1155 Local . 02 Electronically signed: . Mitesh Mccray MD, Pathologist NPI- [id number] . 01 Gross description: . The specimen is received in formalin, labeled "Shantanu Gamboa, gastric biopsy". Received is a segment of pale lazcano soft tissue measuring 0.4 cm in maximum dimensions. The specimen is submitted entirely in cassette A1. (CAA; 08/21/2020) QAC/QAC 08/21/2020 1037 Local . 02 Pathologist provided ICD-10: K29.50, K31.9 . 02 CPT . 574704, [id number] Specimen Comment: A courtesy copy of this report has been sent to [phone], [phone] Specimen Comment: [phone] Specimen Comment: Report sent to / DR GORDON Performed at: [address], [place] [id number] MD Mitesh Mccray MD Phone: [phone] Performed at: [address] [id number] MD Bailey Blank MD Phone: [phone]
[2020-08-22 18:39] VITALS: BP 130/75
--- NOTE | 2020-08-22 18:56 | NUR ---
PT REMAINS CONFUSED. PT AGITATED YELLING. PT GIVEN PRN VALIUM. PT BP AND PULSE DOCUMENTED AND IV METOPROLOL GIVEN. VSS. PT Q 2 TURNS. PT CONTINUES TO REFUSE ANYTHING BY MOUTH. PUSHES HANDS AWAY. STATES NO. PT HAS A DRY MOUTH. REFUSED ORAL CARE. WILL CONTINUE TO MONITOR.
[2020-08-22 21:19] VITALS: BP 116/77
[2020-08-23] VITALS (7 sets, daily range): BP systolic 120–142; BP diastolic 70–88
[2020-08-23 05:04] LABS: HEMATOCRIT 24.5 % (37.0-47.0); HEMOGLOBIN 7.9 gm/dL (12.0-15.0); MCHC 32.3 g/dL (28.0-37.0); MCV 89.6 fL (80.0-100.0); MPV 8.7 fl. (7.2-11.1); NUCLEATED RBCS 0 /100WBC; PLATELET COUNT* 359 thou/uL (150-400); RBC 2.74 mil/uL (4.20-5.00); RDW-CV 16.5 % (10.5-14.5); WBC 22.3 thou/uL (4.0-11.0)
[2020-08-23 06:51] LABS: ABSOLUTE LYMPHOCYTES 3.8 thou/uL (0.8-5.3); ABSOLUTE MONOCYTES 0.4 thou/uL (0.0-1.2); ABSOLUTE NEUTROPHILS 18.1 thou/uL (1.6-8.1)
[2020-08-23 06:52] LABS: HYPOCHROMASIA 1+; MICROCYTES 1+; PLATELET ESTIMATE ADEQUATE
[2020-08-23 06:53] LABS: SCHISTOCYTES Occasional; TARGET CELLS Occasional
--- NOTE | 2020-08-23 10:30 | NUR ---
WBC INCREASED,URINE AND BLOOD CX PENDING. ID TO SEE. NO DISCHARGE TODAY OR OVER WEEKEND. BERT/SANDY PERALES NOTIFIED.
--- NOTE | 2020-08-23 10:40 | CON ---
[address] [address] CONSULTATION Name: DYLON GAMBOA Room: [address] ADM IN M.R.#: [id number] Admission: 08/09/20 Attend Phys: Lexx Cohen MD Discharge: Date of : 66 Report #: [id number] THIS REPORT FOR: cc: FAM - No family physician/PCP FAM - No family physician/PCP ~ Roberto Carlos Escobedo MD DATE OF SERVICE: 08/10/2020 CONSULTING PHYSICIAN: Lexx Cohen MD REASON FOR CONSULTATION: Elevated creatinine. HISTORY OF PRESENT ILLNESS: A 50-year-old female who was admitted with altered mental status. UA looks possibly infected. Neurology has been consulted for altered mental status. She was noted to have a creatinine of 5, but previous records are not available. Outpatient records have been requested. Baseline creatinine is unknown. It is suspected that she has some underlying chronic kidney disease. She is a very poor historian. At this time, she is not able to verbally give much in the way of history. History is obtained largely through chart review. REVIEW OF SYSTEMS: Constitutional, psych, heme, eyes, ENT, respiratory, cardiac, GI, , endocrine, all negative except as documented above and as best can be ascertained. PAST MEDICAL HISTORY: Suspected chronic kidney disease, history of CVA. SOCIAL HISTORY: Tobacco use unknown. FAMILY HISTORY: Not pertinent to current clinical case. PHYSICAL EXAMINATION: VITAL SIGNS: Blood pressure is 120/62, pulse 113, respirations 20, temperature 36.6. GENERAL: No acute distress. EYES: Opens eyes. EARS: Externally normal. CARDIOVASCULAR: Tachycardic. LUNGS: Diminished breath sounds. ABDOMEN: Soft. MUSCULOSKELETAL: Nontender. PSYCHIATRIC: Awake, alert. LABORATORY DATA: White cell count 23, hemoglobin 10.6, platelets 316[place] [address] CONSULTATION Name: DYLON GAMBOA Room: [address] IN [facility]#: [id number] Admission: 08/09/20 Attend Phys: Lexx Cohen MD Discharge: Date of : 66 Report #: [id number] 148, potassium 3.5, chloride 107, bicarbonate 23, BUN 74, creatinine 5.1, glucose 127, calcium 8.6. ASSESSMENT: 1. Acute kidney injury slightly with a suspected element of chronic kidney disease. 2. Hypernatremia with sodium 148 on admission. 3. History of cerebrovascular accident. 4. History of myocardial infarction. 5. On chronic anticoagulation, questionable atrial fibrillation. PLAN: We will adjust IV fluids to half normal saline given her mild hypernatremia. Records have been requested to determine baseline renal function. No acute indication for dialysis at this time. Neurology has been consulted. She possibly has a UTI, Internal Medicine is managing. CT scan showed kidneys were okay. Urine culture has been ordered. We will defer any antibiotics to primary service. Check lab in a.m. Thank you for requesting my opinion in the care and management of this patient. <ELECTRONICALLY SIGNED> By: Roberto Carlos Escobedo MD 08/23/20 1040 [id number] [id number] Escobedo MD /nt
--- NOTE | 2020-08-23 14:30 | NUR ---
RECEIVED CALL FROM ID MD. DR. CHADWICK INFORMED OF PATIENT CONDITION. WILL BEAM IN TO SEE PATIENT AND PERFORM ID CONSULT.
--- NOTE | 2020-08-23 17:55 | NUR ---
PT REMAINS LETHARGIC. PT SAT IN CHAIR TODAY. MAX ASSIST. NOT ORIENTED. VS MONITORED. PT CONTINUES TO REFUSE PO MEDS/ORAL CARE. PT GIVEN PRN VALIUM X 1. WILL CONTINUE TO MONITOR. PT HAD ID CONSULT.
[2020-08-24 00:55] VITALS: BP 140/75
[2020-08-24 04:25] VITALS: BP 101/71
--- NOTE | 2020-08-24 04:30 | NUR ---
PATIENT SLEPT WELL DURING THIS SHIFT. PT UNCOOPERATIVE AND DID NOT WANT TO TAKE CRUSHED PILLS BUT EVENTUALLY CONVINCED TO TAKE THEM. PT TURNED Q2H PER PROTOCAL. PT INCONTINENT OF URINE. PT HAS WOND ON COCCYX; GEORGE. PT WITH SALINE LOCK IN RT FOREARM. PT REMAINS TACHYCARDIC WITH HR IN THE 120'S. PT DENIES PAIN. FREQUENTLY USED ITEMS AND CALL LIGHT WTHIN REACH. SIDERAILS UPX3 AND BED ALARM ON. WILL CONTINUE TO MONITOR.
[2020-08-24 05:14] LABS: HEMOGLOBIN 7.9 gm/dL (12.0-15.0); MCH 28.2 pg (26.0-34.0); MCHC 31.7 g/dL (28.0-37.0); MPV 8.5 fl. (7.2-11.1); RBC 2.81 mil/uL (4.20-5.00); RDW-CV 16.2 % (10.5-14.5); WBC 19.8 thou/uL (4.0-11.0)
[2020-08-24 06:02] LABS: ALBUMIN 1.5 g/dL (3.4-5.0); CALCIUM 8.5 mg/dL (8.5-10.1); MAGNESIUM 1.9 mg/dL (1.8-2.4); POTASSIUM 4.8 mmol/L (3.5-5.1); TOTAL BILIRUBIN 0.2 mg/dL (<0.1-1.0); TOTAL PROTEIN 5.3 g/dL (6.4-8.2)
[2020-08-24 08:25] VITALS: BP 120/77
[2020-08-24 20:00] VITALS: BP 123/75
--- NOTE | 2020-08-24 20:19 | NUR ---
Pt alert and oriented x2-3 for entire shift. Pt refusing most care. Pt refusing oral medication. Pt's lips are dry and cracked and teeth are dirty. This nurse offered chapstick and oral care to pt. Pt refused. Pt did not eat more than a few bites of food today. Pt was able to speak with a friend on the phone today. Pt mostly made sense during the conversation and was more alert during conversation. This nurse will try the same activity tomorrow. Pt slept well this morning but began yelling out again after 1600. Pt seemingly has a hard time expressing needs after calling out. Bed in low position, bed alarm on, call light within reach.
--- NOTE | 2020-08-25 04:37 | NUR ---
ASSUMED PT CARE AT APPROX. 1930. VSS, ASYMPTOMATIC TACHY HR. PT HAS A LFA-SL. PT IS ON RA. PT HAS AN ORDERED DIET FOR NECTAR THICK LIQUIDS, GROUND MECH. PILLS CRUSHED AND PLACED IN PUDDING. PT IS ALERT AND ORIENTED TO SELF. PT YELLS OUT HELP ME. PICTURES OF PT NEEDS IN PTS ROOM WERE USED TO COMMUNICATE PT NEEDS. PT SHRUGGED AND SAID NO. OTHER TIMES DURING THE NIGHT THIS PT WOULD YELL HELP ME IN HER SLEEP. PT REFUSES ORAL CARE. PTS LIPS ARE DRY AND CRACKED. RN ATTEMPTED TO USE ORAL SWABS TO PROVIDE MOISTURE. PT BECAME COMBATITIVE STATING "GET THAT SHIT OUT OF HERE." PT HAS AN ORAL MOISTURE SPRAY PRESCRIBED AND REFUSES. SALAS-CARE PROVIDED TONIGHT. BARRIER CREAM PLACED. LABS HAVE BEEN REVIEWED. HOURLY ROUNDING COMPLETE CHARTED. FALL PRECAUTIONS IN PLACE FOR SAFETY. MEDICATIONS ADMINISTERED PRESCRIBED. PT TURNED Q2H. PT REFUSED TO BE TURNED A FEW TIMES DURING THE NIGHT. PT CURRENTLY RESTING IN BED. WILL CONT. TO MONITOR.
[2020-08-25 08:30] VITALS: BP 114/65
[2020-08-25 16:00] VITALS: BP 126/76
[2020-08-25 20:00] VITALS: BP 115/76
--- NOTE | 2020-08-25 20:07 | NUR ---
Pt remained alert and oriented to self for entire shift. Pt continues to have elevated HR. Pt continuing to refuse PO medication. Pt has poor appetite but did eat about 6 spoonfuls of chicken broth and 4 bites of sherbet for lunch. Pt Refusing to allow staff to provide any kind of oral care. This nurse offered chapstick and teeth brushing several times this shift and even offered to allow pt to do it herself. Pt not allowing staff to clean face with wet cloth. This nurse and SERVER CASHIER were able to provide a partial bed bath today. Pt was turned Q2 hours. Pt still only somewhat verbal and seems to have difficulty expressing needs. Bed in low position, all 4 railings up, bed alarm on, call light within reach.
[2020-08-26 06:33] LABS: HEMATOCRIT 24.4 % (37.0-47.0); HEMOGLOBIN 7.5 gm/dL (12.0-15.0); MCH 27.6 pg (26.0-34.0); MCHC 30.6 g/dL (28.0-37.0); MCV 90.3 fL (80.0-100.0); MPV 8.2 fl. (7.2-11.1); RBC 2.7 mil/uL (4.20-5.00); RDW-CV 16.6 % (10.5-14.5); WBC 21.1 thou/uL (4.0-11.0)
[2020-08-26 06:43] LABS: CALCIUM 8.4 mg/dL (8.5-10.1); CREATININE 3.6 mg/dL (0.6-1.3); MAGNESIUM 1.8 mg/dL (1.8-2.4); POTASSIUM 5.1 mmol/L (3.5-5.1)
[2020-08-26 08:00] VITALS: BP 124/77
--- NOTE | 2020-08-26 13:55 | NUR ---
RIGHT INTERNAL JUGULAR VESSEL ASSESSED TO BE PATENT, VEIN SITE PREPPED WITH CHLOROPREP AND STERILE DRAPE PER PROTOCOL/POLICY. PREMEASUREMENT MADE AND FOUND TO BE 21CM FROM INSERTION SITE AND 3-4 RIB SPACE. LIDOCAINE 1% USED TO LOCALIZE THE INSERTINO SITE AND #20 THEA NEEEDLE INSERTED INTO RIGHT IJ AT MID NECK LINE. GUIDE WIRE ADVANCED WITH NO RESISTANCE MET AND NEEDLE WITHDRAWN WITH WIRE MAINTAINING ACCESS. MICROINTRODUCER INSERTED OVER WIRE WITH NO DIFFICULTY. INNERCANNULA REMOVED WITH WIRE AND TRIPLE LUMEN CENTRAL LINE INSERTED TO THE 21CM STEFANIA WITH NO RESISTANCE MET. LINE FLUSHES WITH EASE AND GOOD BRISK BLOOD RETURN NOTED. STATLOCK APPLIED AND BIOPATCH CVERED THE INSERTION SITE. BIO-OCCLUSIVE DRESSING APPLIED OVER THE SUTURE WING AND INSERTION SITE. POST PROCEDURE CXR SHOWS TIP TERMINATES AT THE ATRIUM AND SVC JUNCTION PER DR KHAN. REPORT GIVEN TO SANDRO THOMPSON.
--- NOTE | 2020-08-26 14:07 | NUR ---
UPDATED BERT/[facility] ANGELLA, THAT PT.IS NOT READY FOR DISCHARGE TODAY. HER WBCS ARE STILL HIGH. ON GOING TESTING.
[2020-08-26 16:37] VITALS: BP 155/68
--- NOTE | 2020-08-26 18:52 | NUR ---
PT DROWSY, BUT WAKES TO BEING MOVED OR INTERACTED WITH. PT REMAINS ON LOW AIRLOSS MATTRESS. RESIDUAL L SIDED DEFICIT. PT DENIES PO INTAKE/MEDICATIONS. IV TO RFA STARTED BY NATASHA THOMPSON, DOUBLE LUMEN CENTRAL PLACED TO R SIDE OF NECK BY NATASHA WELL. ORAL CARE X2 PATIENT WOULD ALLOW. MOISTUIZER APPLIED TO LIPS. PT REPOSITIONED FOR SKIN INTEGRITY. PT RESTS IN BED WITH CALL LIGHT IN REACH.
[2020-08-27] VITALS (7 sets, daily range): BP systolic 101–160; BP diastolic 63–91
--- NOTE | 2020-08-27 04:43 | NUR ---
PATIENT SLEPT WELL DURING THIS SHIFT. PT REFUSED ALL HS MEDICATIONS. PT WITH DOUBLE LUMAN CENTRAL LINE IN RT NECK AND PERIPHERAL LINE IN RT FOREARM. PT WITH ANTIBIOTICS/FLUIDS INFUSING PER DR ORDER. PT INCONTINENT OF URINE; CHANGED DURING THIS SHIFT. PT TURNED Q2H PER PROTOCAL. PT MOANED OUT SEVERAL TIMES BUT DID NOT SAY WHAT SHE WANTED. PT REMAINS AFEBRILE DURING THIS SHIFT. PT IS ON LO AIR LOSS MATTRESS. CALL PLACED TO [facility] REGARDING YELLOW LIGHT ON MOTOR ON END OF BED. SERVICE REP TO COME LOOK AT BED. NOTE PLACED ON MOTOR REGARDING SERVICE CALL. FREQUENTLY USED ITEMS AND CALL LIGHT WITHIN REACH. SIDERAILS UPX4 AND BED ALARM ON. WILL CONTINUE TO MONITOR.
[2020-08-27 06:41] LABS: HEMATOCRIT 21.5 % (37.0-47.0); MCH 27.8 pg (26.0-34.0); MCHC 30.3 g/dL (28.0-37.0); MCV 91.7 fL (80.0-100.0); MPV 8.2 fl. (7.2-11.1); RBC 2.34 mil/uL (4.20-5.00); RDW-CV 16.8 % (10.5-14.5); WBC 17.7 thou/uL (4.0-11.0)
[2020-08-27 06:54] LABS: HEMOGLOBIN 6.5 gm/dL (12.0-15.0)
[2020-08-27 07:10] LABS: ALBUMIN 1.3 g/dL (3.4-5.0); CALCIUM 8.1 mg/dL (8.5-10.1); CREATININE 3.5 mg/dL (0.6-1.3); MAGNESIUM 1.8 mg/dL (1.8-2.4); POTASSIUM 4.4 mmol/L (3.5-5.1); TOTAL BILIRUBIN 0.1 mg/dL (<0.1-1.0); TOTAL PROTEIN 4.6 g/dL (6.4-8.2)
--- NOTE | 2020-08-27 10:19 | NUR ---
PHONE CALL TO PT'S AUTHORIZED CONTACT RUSTY. MULTIPLE RINGS. WENT TO . UNABLE TO LEAVE MESSAGE. VOICEMAIL FULL AT THIS TIME.
--- NOTE | 2020-08-27 10:31 | NUR ---
SECOND CALL TO RUSTY GAMBOA PT VIAL GAUGER. MULTIPLE RINGS. VOICEMAIL BOX FULL THEN PHONE DISCONNECTED. UNABLE TO LEAVE A MESSAGE TO CALL BACK.
--- NOTE | 2020-08-27 12:10 | NUR ---
PT.NEEDING ANOTHER BLOOD TRANSFUSION TODAY. IS NOT STABLE FOR DISCHARGE. CM WILL FOLLOW.
--- NOTE | 2020-08-27 12:17 | NUR ---
PC FROM RUSTY. STATES SHE WORKS [employer]. SHE FELL ASLEEP AND DIDNT HEAR THE PHONE. STATES SHE LIVES IN [place] AND THE WEATHER HAS BEEN BAD AND CAN NOT TALK WHILE DRIVING. INFORMED OF PT CONDITION AND PLAN OF CARE. NOTIFIED THAT PT HGB LOW AND NOW RECEIVING BLOOD. STATES SHE IS OK WITH IT. WOULD LIKE TO SPEAK TO MD. WILL NOTIFY DR. RICHARDSON.
--- NOTE | 2020-08-27 12:25 | NUR ---
DR. RICHARDSON AT [facility] NOTIFIED THAT SISTER RUSTY WOULD LIKE TO SPEAK WITH HER. STATES SHE WILL TRY TO CALL HER AGIAN.
[2020-08-27 14:31] LABS: BE -8.5 mmol/L (-2 to +3); PCO2 35.6 mmHg (35.0-45.0)
[2020-08-27 15:43] LABS: CALCIUM 8.2 mg/dL (8.5-10.1); CREATININE 3.4 mg/dL (0.6-1.3); POTASSIUM 4.3 mmol/L (3.5-5.1)
--- NOTE | 2020-08-27 18:14 | NUR ---
PT REMAINS VERY LETHARGIC AND SLEEPING MOST OF THE DAY. PT CONTINUES TO HAVE IV FLUIDS INFUSING AND IV ABX. PT REMAINS TACHYCARDIC. PT HAD 1 UNTI OF BLOOD TODAY. PT TOLERATED WELL. PT HGB AND ELECTROLYTES REDRAWN PER RN. PT HAS A TRIPLE LUMEN PICC LINE ON THE RIGHT SIDE. ALSO A PERIPHERAL IV ON THE RIGHT FOREARM. PT REMAINS TACHYCARDIC. PT RESPONDS TO PHYSICAL TOUCH AND STIMULI. PT MOVED FROM ONE AIR LOSS MATTRESS TO ANOTHER DUE TO MALFUNCTION. TOLERATED MOVE FROM BED IN RIGO LIFT WELL. PT INCONTINENT OF URINE NO STOOL THIS SHIFT. PT STARTING TO WAKE UP A BIT MORE. ORAL CARE DONE. CALL LIGHT WITHIN REACH. WILL CONTINUE TO MONITOR.
--- NOTE | 2020-08-27 21:27 | NUR ---
PT REFUSES ANY ATTEMPT TO DRINK WATER WITH STRAW OR SPOON, PILLS, FOOD. I TRIED DIFFERENT FOODS OFF HER DINNER TRAY ON A SPOON TO HER LIPS AND SHE SHUTS HER MOUTH COMPLETELY. I TRIED THICKENED LIQUIDS ON A SPOON AND SAME RESULT. NOT ABLE TO GIVE PO MEDS THIS EVENING. SHE DID RECEIVED ALL IV MEDS ON SCHEDULE.
[2020-08-28 00:20] VITALS: BP 137/83
[2020-08-28 04:38] VITALS: BP 156/88
--- NOTE | 2020-08-28 05:34 | NUR ---
PT VERY WEAK AND LETHARGIC. REFUSING ANYTHING ORAL (MEDS, FLUIDS, FOOD) MULTIPLE ATTEMPTS. RECEIVED ALL IV MEDS SCHEDULED. Q2 TURN. INCONTINENT. ROOM AIR. DOES NOT ANSWER QUESTIONS BUT WILL SAY HELP OCCASIONALLY. LEFT SIDE WEAKNESS SEEMS WORSENED FROM LAST WEEK. SHE IS VERY SLEEP AND RESPONDS TO ANY STIMULATION, LIKE MOVING HER HEAD WITH AN OUCH AND UNCOMFORTABLE. MONITORING LABS, RECEIVED FLUIDS ALL SHIFT.
[2020-08-28 05:47] LABS: HEMATOCRIT 24.3 % (37.0-47.0); HEMOGLOBIN 7.5 gm/dL (12.0-15.0); MCH 28.1 pg (26.0-34.0); MCHC 30.7 g/dL (28.0-37.0); MCV 91.5 fL (80.0-100.0); MPV 9.1 fl. (7.2-11.1); RBC 2.65 mil/uL (4.20-5.00); RDW-CV 16.7 % (10.5-14.5); WBC 12.9 thou/uL (4.0-11.0)
[2020-08-28 05:55] VITALS: BP 152/73
[2020-08-28 06:03] LABS: ALBUMIN 1.3 g/dL (3.4-5.0); ALKALINE PHOSPHATASE 94 U/L (46-116); ANION GAP 17 mmol/L (7-16); BUN 55 mg/dL (7-18); CALCIUM 7.4 mg/dL (8.5-10.1); CHLORIDE 127 mmol/L (98-107); CO2 15 mmol/L (21-32); CREATININE 3.1 mg/dL (0.6-1.3); GLUCOSE 138 mg/dL (70-99); MAGNESIUM 1.6 mg/dL (1.8-2.4); SGOT 10 U/L (15-37); SGPT < 6 U/L (30-65); SODIUM 159 mmol/L (136-145); TOTAL BILIRUBIN 0.1 mg/dL (<0.1-1.0); TOTAL PROTEIN 4.6 g/dL (6.4-8.2)
--- NOTE | 2020-08-28 11:48 | NUR ---
WOUND NURSE: PATIENT'S BED BROKE YESTERDAY, SO RECEIVED CONSULT REGARDING IT. THE BRIAN MATTRESS WAS REPLACED YESTERDAY BY JENNIFER PER THE NURSE, SO DC'D THE WOUND NURSE CONSULT.
[2020-08-28 12:00] VITALS: BP 129/74
--- NOTE | 2020-08-28 12:00 | NUR ---
CONTINUES TO BE LETHARGIC. REFUSING MEDS, FOOD. AFEBRILE,OTHER VSS. MRI PLANNED FOR TODAY. LEUKOCYTOSIS DECREASING.
[2020-08-28 16:00] VITALS: BP 118/74
--- NOTE | 2020-08-28 17:51 | NUR ---
PT IS RESTING IN BED. PT IS LETHARGIC. PT HAS BEEN TURNED EVERY TWO HOURS AND HAS RECIEVED ORAL CARE WITH EACH TURN. PT HAD AN MRI THIS AFTERNOON. PT IS NONVERBAL APPEARS COMFORTABLE AT THIS TIME. CALL LIGHT WITHIN REACH.
--- NOTE | 2020-08-28 18:52 | NUR ---
I HAVE REVIEWED AND AGREE WITH CHARTING BY [facility] NASCIMENTO.
[2020-08-28 20:20] VITALS: BP 143/85
[2020-08-29] VITALS (11 sets, daily range): BP systolic 87–157; BP diastolic 44–85
--- NOTE | 2020-08-29 04:25 | NUR ---
PT REFUSES ALL PO MEDS, FLUIDS, FOOD, ANY AND ALL ATTEMPTS. RECEIVED ALL ABX AND FLUIDS IV SCHEDULED. Q2 TURN. LETHARGIC, SLEEPY, NOT ANSWERING QUESTIONS. SKIN OK AT THIS TIME. INCONTINENT OF URINE, BED CHANGED, GOWN CHANGED. ROOM AIR. AWAITING LABS THIS AM. WILL CONTINUE TO MONITOR.
[2020-08-29 04:41] LABS: HEMATOCRIT 22.3 % (37.0-47.0); MCH 28.3 pg (26.0-34.0); MCHC 30.8 g/dL (28.0-37.0); MCV 91.8 fL (80.0-100.0); MPV 8.8 fl. (7.2-11.1); RBC 2.43 mil/uL (4.20-5.00); RDW-CV 16.5 % (10.5-14.5)
[2020-08-29 05:07] LABS: HEMOGLOBIN 6.9 gm/dL (12.0-15.0)
--- NOTE | 2020-08-29 05:11 | NUR ---
PAGED DR GOLDEN AT 0512 TO ALERT HIM OF CRITICAL LAB RESULT HGB 6.9 AND REQUESTING A NEW ORDER FOR 1 UNIT OF BLOOD IF NEEDED.
[2020-08-29 05:23] LABS: ALBUMIN 1.3 g/dL (3.4-5.0); CALCIUM 8.1 mg/dL (8.5-10.1); CREATININE 2.9 mg/dL (0.6-1.3); MAGNESIUM 1.9 mg/dL (1.8-2.4); POTASSIUM 3.7 mmol/L (3.5-5.1); TOTAL BILIRUBIN 0.1 mg/dL (<0.1-1.0); TOTAL PROTEIN 4.3 g/dL (6.4-8.2)
--- NOTE | 2020-08-29 11:16 | NUR ---
WOUND NURSE: PATIENT SEEN FOR FOLLOW UP ASSESSMENT. COCCYX WHICH INITIALLY HAD AN INTACT PINK SCAR, NOW IS OPEN AND MEASURING 2.5 X 1.0 X 0.1 CM. CONTAINS PINK NONGRANULATING TISSUE IN THE WOUND BED, SCANT SEROUSANGUINOUS DRAINAGE. RIGHT BUTTOCK WITH SHALLOW LESION CONTAINING PINK NONGRANULATING TISSUE, SCANT SEROUSANGUINOUS DRAINAGE. WOUND CLEANSED WITH SOAP AND WATER, RINSED, PATTED DRY. APPLIED SKIN PREP TO INTACT PERIWOUND TISSUE. APPLIED AQUACEL AG (CUT TO FIT) EACH WOUND, THEN SECURED IN PLACE USING SURESITE TRANSPARENT DRESSING. PLAN TO HAVE DRESSING CHANGED EVERY 3 DAYS AND PRN. PATIENT NONCOMMUNICATIVE AND UNTEACHEABLE AT THIS TIME.
--- NOTE | 2020-08-29 11:42 | NUR ---
I HAVE REVIEWED AND AGREE WITH CHARTING BY [facility] NASCIMENT[facility].
--- NOTE | 2020-08-29 12:00 | NUR ---
PT TO ROOM 205 VIA BED. BLOOD INFUSING TO LEFT IJ TLC. PT LETHARGIC,WILL OPEN EYES THEN FALL BACK TO SLEEP. NSR ON MONITOR. 02@4L NC. BRADYPNEA
--- NOTE | 2020-08-29 12:10 | NUR ---
PATIENT TRANSFERRED TO ROOM 205. REPORT GIVEN TO ROSEMARIE THOMPSON.
--- NOTE | 2020-08-29 14:00 | NUR ---
PT.TRANSFERRED TO TELEMETRY FLOOR . TO HAVE GI PROCEDURE TODAY. REMAINS LETHARGIC AND NOT VERY RESPONSIVE. SISTER/DPOA OF PT.IS VERY HARD TO GET AHOLD OF AT TIMES, SHE WORKS 2 JOBS. CAN'T ANSWER HER PHONE ALL THE TIME WHILE WORKING. REMAINS A FULL CODE. [facility] CAN ACCEPT PT.TO THEIR FACILITY WHEN READY FOR DISCHARGE. THEY COULD ACCEPT PT.ON HOSPICE. NOTIFIED BERT HOOD/ASAD PERALES THAT PT.NOT READY FOR DISCHARGE TODAY.-[phone].
--- NOTE | 2020-08-29 15:02 | NUR ---
ATTEMPT TO REACH SISTER IVELISSE RE: GI PROCEDURE TODAY. NO ANSWER
--- NOTE | 2020-08-29 17:38 | NUR ---
PT BACK FROM PACU. PT LETHARGIC,DOES NOT RESPOND TO TOUCH. IVF INFUSING
--- NOTE | 2020-08-29 17:40 | NUR ---
PT TO UNIT THIS AFTERNOON.PT LETHARGIC AND DOES NOT RESPOND TO COMMANDS. RESPONDS MINIMALLY TO TOUCH. PT NPO THROUGHOUT SHIFT D/T ASPIRATION RISK. DISCUSSED PT STATUS WITH PTS SISTER TODAY. SHE STATES SHE WANTS PT TO REMAIN FULL CODE. SHE DOES NOT WANT A PEG TUBE PLACED. IVF INFUSING. PT REPOSITIONED FREQUENTLY WHILE IN BED. INCONTINENT OF URINE- MINIMAL URINE OUTPUT. NSR ON MONITOR
[2020-08-30] VITALS (9 sets, daily range): BP systolic 90–126; BP diastolic 47–64
[2020-08-30 04:21] LABS: HEMATOCRIT 25.1 % (37.0-47.0); HEMOGLOBIN 7.8 gm/dL (12.0-15.0); MCH 28.2 pg (26.0-34.0); MCHC 31.2 g/dL (28.0-37.0); MCV 90.7 fL (80.0-100.0); MPV 9.2 fl. (7.2-11.1); RBC 2.77 mil/uL (4.20-5.00); RDW-CV 16.7 % (10.5-14.5); WBC 12.4 thou/uL (4.0-11.0)
[2020-08-30 04:39] LABS: ALBUMIN 1.3 g/dL (3.4-5.0); ALKALINE PHOSPHATASE 73 U/L (46-116); ANION GAP 16 mmol/L (7-16); BUN 53 mg/dL (7-18); CALCIUM 8.1 mg/dL (8.5-10.1); CHLORIDE 116 mmol/L (98-107); CO2 15 mmol/L (21-32); CREATININE 3.1 mg/dL (0.6-1.3); GLUCOSE 266 mg/dL (70-99); MAGNESIUM 1.8 mg/dL (1.8-2.4); POTASSIUM 3.7 mmol/L (3.5-5.1); SGOT 10 U/L (15-37); SGPT < 6 U/L (30-65); SODIUM 147 mmol/L (136-145); TOTAL BILIRUBIN 0.1 mg/dL (<0.1-1.0); TOTAL PROTEIN 4.2 g/dL (6.4-8.2)
--- NOTE | 2020-08-30 07:05 | NUR ---
PT IS ABLE TO COMMUNICATE HER NEEDS TO STAFF WITH A LOT OF DIFFICULTY; SHE IS MOSTLY NON-VERBAL AND LETHARGIC; MDs ARE AWARE. SHE HAS DENIED THE NEED FOR PAIN MEDICATION UP TO THIS TIME. PT NOW RECEIVING TPN; Q6HR ACCUCHECKS MAINTAINED. SHE HAS BEEN UNABLE/ REFUSES TO TAKE PO MEDS, FOOD OR DRINK OVERNIGHT, UP TO THIS TIME.
--- NOTE | 2020-08-30 12:27 | NUR ---
Family declined peg tube yesterday, Pt currently on TPN. Pt will need a nutrition source prior to dc or would need to dc with hospice. Drs to discuss with family. Plan to [facility] with a peg vs hospice at dc. No weekend dc planned. Following.
--- NOTE | 2020-08-30 15:00 | NUR ---
CATHFLO TO WHITE AND BLUE PORT OF TLC. BLUE PORT FLUSHES AND DRAWS PATENTLY. WHITE PORT REMAINS SLUGGISH
--- NOTE | 2020-08-30 16:22 | NUR ---
PT RESTING IN BED,RESPOSITIONED FREQUENTLY. PT OCASSIONALLY OPENS EYES AND MOANS BUT DOES NOT RESPOND TO NAME. RESPONDS MINIMALLY TO PAIN. NPO. ORAL CARE FREQUENTLY. MULTIPLE EMESIS EPISODES TODAY-ONE SMALL HEMATEMESIS THIS AM OTHER EPISODES BILE. TPN AND PROTONIX GTT INFUSING. SISTER TO BS THIS AFTERNOON,PLAN OF CARE DISCUSSED BY DR RICHARDSON. AFTER SEVERAL HOURS WITH NO UO BLADDER SCAN REVEALED >650 ML CHU CATH INSERTED
[2020-08-31 04:10] VITALS: BP 113/60
[2020-08-31 05:21] LABS: ALBUMIN 1.1 g/dL (3.4-5.0); ALKALINE PHOSPHATASE 66 U/L (46-116); ANION GAP 14 mmol/L (7-16); BUN 61 mg/dL (7-18); CALCIUM 8.1 mg/dL (8.5-10.1); CHLORIDE 118 mmol/L (98-107); CO2 16 mmol/L (21-32); CREATININE 3.6 mg/dL (0.6-1.3); GLUCOSE 181 mg/dL (70-99); MAGNESIUM 1.9 mg/dL (1.8-2.4); POTASSIUM 3.3 mmol/L (3.5-5.1); SGOT 8 U/L (15-37); SODIUM 148 mmol/L (136-145); TOTAL BILIRUBIN < 0.1 mg/dL (<0.1-1.0); TOTAL PROTEIN 4.1 g/dL (6.4-8.2)
[2020-08-31 05:23] LABS: HEMATOCRIT 21.5 % (37.0-47.0); MCH 28.6 pg (26.0-34.0); MCHC 31.9 g/dL (28.0-37.0); MCV 89.6 fL (80.0-100.0); MPV 8.9 fl. (7.2-11.1); RBC 2.4 mil/uL (4.20-5.00); RDW-CV 16.6 % (10.5-14.5); SGPT < 6 U/L (30-65); WBC 9.8 thou/uL (4.0-11.0)
[2020-08-31 05:25] LABS: HEMOGLOBIN 6.9 gm/dL (12.0-15.0)
[2020-08-31 09:01] VITALS: BP 116/56
[2020-08-31 12:00] VITALS: BP 110/59
[2020-08-31 13:07] VITALS: BP 100/48; BP 104/50; BP 106/42; BP 120/71; BP 123/62
--- NOTE | 2020-08-31 13:11 | NUR ---
RE: PHARMACY TO DOSE TPN. TO CONTINUE PER HOSPITALIST. ELECTROLYTE PROTOCOL AVAILABLE TO RESOLVE LOW K+. WILL FOLLOW. THANK YOU.
[2020-08-31 16:00] VITALS: BP 112/62
[2020-08-31 17:47] LABS: HEMATOCRIT 25.3 % (37.0-47.0); HEMOGLOBIN 8.2 gm/dL (12.0-15.0)
--- NOTE | 2020-08-31 19:42 | NUR ---
ASSUMED CARE AT 0730. AM ASSESSMENT CHARTED. MEDS PER MAR. PT SLEEPY, NOT EASY TO AROUSE. HOB KEPT AT 30-45 DEGREES AT ALL TIMES. SAFETY MEASURES IN PLACE. TURNED AND REPOSITIONED EVERY 2 HOURS TO PROMOTE COMFORT. HGB 6.9- 1 UNIT PRBC TRANSFUSED WITHOUT COMPLICATIONS- POST HGB 8.2. SUCTIONED X 2 TODAY FOR COMFORT. NOTED LIGHT BROWN EMESIS. DRESSINGS INTACT. MOUTH CARE GIVEN. CALL LIGHT WITHIN REACH. WILL CONTINUE PLAN OF CARE.
[2020-09-01] VITALS: BP 160/55
--- NOTE | 2020-09-01 00:44 | NUR ---
ATTEMPTED TO CALL PATIENT'S DPOA FOR HEALTHCARE, RUSTY GAMBOA. UNABLE TO CONTACT OR LEAVE VOICEMAIL. CALLED SECOND IN LINE, EMIL GAMBOA. UPDATED ON PATIENT CONDITION AND REVIEWED CODE STATUS. EMIL STATED UNABLE TO MAKE MEDICAL DECISIONS FOR PATIENT AND WOULD ATTEMPT TO GET A HOLD OF RUSTY AND HAVE HER CALL BACK.
[2020-09-01 04:00] VITALS: BP 164/56
[2020-09-01 07:20] LABS: WBC 13.5 thou/uL (4.0-11.0)
[2020-09-01 07:26] LABS: HEMATOCRIT 20.7 % (37.0-47.0); MCH 29.1 pg (26.0-34.0); MCHC 33.1 g/dL (28.0-37.0); MCV 87.8 fL (80.0-100.0); MPV 8.7 fl. (7.2-11.1); RBC 2.36 mil/uL (4.20-5.00); RDW-CV 15.9 % (10.5-14.5)
[2020-09-01 07:30] LABS: HEMOGLOBIN 6.9 gm/dL (12.0-15.0)
[2020-09-01 07:35] LABS: CALCIUM 8.2 mg/dL (8.5-10.1); MAGNESIUM 1.9 mg/dL (1.8-2.4); PHOSPHORUS* 1.4 mg/dL (2.5-4.9); POTASSIUM 3.5 mmol/L (3.5-5.1)
[2020-09-01 08:00] VITALS: BP 132/64
--- NOTE | 2020-09-01 08:40 | NUR ---
PT MORE LEHTARGIC THIS SHIFT OBSERVED BY THIS RN. OPENED EYES SLIGHTLY ONCE. POSITIONED PT ON SIDE WITH HEAD ELEVATED 45 DEGREES @ ALL TIMES R/T PT VOMITING LARGE AMOUNTS OF BILE AND HIGH RISK FOR ASPIRATION. ATTEMPTED TO CONTACT PT'S SISTER AND OTHER MALE FAMILY MEMBER LISTED ON DPOA PAPERWORK TO CLARIFY PT'S CODE STATUS RELATED TO DETERIORATION IN PATIENT CONDITION. SISTER RUSTY DID NOT ANSWER DURING THE NIGHT BUT DID CALL BACK THIS AM. SISTER REPORTED SHE THOUGHT PT HAD AN ADVANCE DIRECTIVE INDICATING SHE DIDNT WANT TO BE RESUCITATED BUT COULDNT REMEBER EXACTLY WHAT. FOUND ADVANCE DIRECTIVE AND SHOWED IT DR MURRAY THIS AM. SHE REPORTED PT WILL BE DNR.
[2020-09-01 09:30] VITALS: BP 132/64
[2020-09-01 17:21] VITALS: BP 116/43
--- NOTE | 2020-09-01 19:33 | NUR ---
ASSUMED PT CARE AT 0730. PT RESPONDS TO TACTILE STIMULI AND AT TIMES PT WILL OPEN EYES BRIEFLY. SPOKE WITH PT'S FAMILY TO UPDATE ON PT'S STATUS. PT CONTINUES WITH NO OUT PUT. PHYSICIAN AND FAMILY INFORMED. NEW ORDERS FOR COMFORT CARE. TPN AND MEDICATIONS HELD. PT HAS NEW ORDERS FOR COMFORT MEDS. SAFETY MEASURES IN PLACE. PT T&REPO Q2HR. ORAL CARE GIVEN Q2H, PT APPEARS TO BE IN NO PAIN. LUNGS SOUNDS ARE CAORSE BILAT. SAFETY MEASURES IN PLACE. PT MONITORED CLOSELY AND FAMILY MEMBER AT BEDSIDE.
--- NOTE | 2020-09-02 04:27 | NUR ---
PATIENT LETHARGIC, NON-VERBAL. RESPERATIONS DROP TO 6/MINUTE THEN GO UP TO 18/MIN; AGONAL BREATHING NOTED. PT WITH MINIMAL AMOUNT IN CHU CATHETER. PT TURNED Q2H PER PROTOCAL. ORAL CARE PROVIDED. MORPHINE 4MG IV GIVEN X1 FOR AIR HUNGER. AFTER GIVEN, PT APPEARED TO HAVE MORE RELAXED BREATHING. EXTREMITIES CONTINUE TO BE WARM AND CAP REFILL < 2 SECONDS. NO EMESIS NOTED DURING THIS SHIFT. FREQUENTLY USED ITEMS AND CALL LIGHT WITHIN REACH. SIDERAILS UPX3 AND BED ALARM ON. FREQUENT OBSERVATIONS MADE. WILL CONTINUE TO MONITOR.
[2020-09-02 08:00] VITALS: BP 111/66
[2020-09-02] MEDS ORDERED: GLYCOPYRROLATE 0.2 MG IVPUSH (09:45)
--- NOTE | 2020-09-02 10:48 | EEG ---
[address] [address] EEG STUDY REPORT Name: DYOLN GAMBOA Room: [address] IN M.R.#: [id number] Admission: 08/09/20 Attend Phys: Lexx Cohen MD Discharge: Date of : 66 Report #: [id number] THIS REPORT FOR: cc: FAM - No family physician/PCP FAM - No family physician/PCP ~ Jesus Cary MD DATE OF SERVICE: 08/30/2020 This patient is being evaluated for altered mental status. EEG was done by placing the electrode by standard 10-20 system of electrode placement. Both referential and sequential montages were used for recording. Background activity in this patient's EEG is about 6 Hz and 30 microvolt. The patient appeared to be drowsy during most of the EEG and that is associated with even more slowing. Photic stimulation is unremarkable. Throughout the record, no active epileptiform activity was noticed. IMPRESSION: This is an abnormal EEG because it is disorganized and poorly formed. That is a nonspecific abnormality, which can occur with encephalopathy, effect of psychotropic medication, etc. Clinical correlation is recommended. <ELECTRONICALLY SIGNED> By: Jesus Cary MD 09/02/20 [id number] [id number] Cary MD /nt
--- NOTE | 2020-09-02 13:29 | NUR ---
Plan home with [facility] per sister's request. [facility] faxed referral. Sister wanting Pt to dc on Wednesday, to call sister to discuss prognosis. Hospice available to have DME delivered as soon as they get the go ahead from [facility].
--- NOTE | 2020-09-02 14:05 | NUR ---
ASSUMED CARE OF PATIENT THIS AM AT 0730. PATIENT IS RESTING WITH EYES CLOSED AND IS UNRESPONSIVE TO PHYSICAL STIMULIS. TELE HAS SHOWN S TACHY. PATIENT GIVEN FREQUENT ORAL CARE. FAMILY MEMBER IS IN AT THE BEDSIDE. DR IN TO ROUND. PLANS MADE TO MAKE PATIENT HOSPICE. WILL CONTINUE COMFORT CARE.
== END 2020-09-02 19:15 | disposition hospice, home (50) | DRG 871 ==
LOC: M.ERS 14:20 → M.2W 15:50 → M.TBA-ER 15:50 → M.2W 21:18 → M.3W 08-19 21:44 → M.2W 08-29 12:09
PROVIDERS: Emergency Medicine Emergency Medical Services; Family Medicine; Internal Medicine; ADMIT Internal Medicine; ATTEND Internal Medicine
PROC: 0DB68ZX Excision of Stomach, Via Natural or Artificial Opening Endoscopic, Diagnostic (ICD-10-PCS; principal; 2020-08-20)
PROC: 02HV33Z Insertion of Infusion Device into Superior Vena Cava, Percutaneous Approach (ICD-10-PCS; 2020-08-26)
PROC: 30233N1 Transfusion of Nonautologous Red Blood Cells into Peripheral Vein, Percutaneous Approach (ICD-10-PCS; 2020-08-27)
PROC: 0W3P8ZZ Control Bleeding in Gastrointestinal Tract, Via Natural or Artificial Opening Endoscopic (ICD-10-PCS; 2020-08-29)
DX: A41.9 Sepsis, unspecified organism (principal); G92 Toxic encephalopathy; K27.4 Chronic or unspecified peptic ulcer, site unspecified, with hemorrhage; N39.0 Urinary tract infection, site not specified; N17.9 Acute kidney failure, unspecified; N18.4 Chronic kidney disease, stage 4 (severe); E87.1 Hypo-osmolality and hyponatremia; E87.0 Hyperosmolality and hypernatremia; I69.354 Hemiplegia and hemiparesis following cerebral infarction affecting left non-dominant side; G82.20 Paraplegia, unspecified; E87.6 Hypokalemia; L89.152 Pressure ulcer of sacral region, stage 2; E86.0 Dehydration; F01.50 Vascular dementia, unspecified severity, without behavioral disturbance, psychotic disturbance, mood disturbance, and anxiety; R51.9 Headache, unspecified; K21.00 Gastro-esophageal reflux disease with esophagitis, without bleeding; D64.9 Anemia, unspecified; I48.91 Unspecified atrial fibrillation; Z51.5 Encounter for palliative care; Z20.822 Contact with and (suspected) exposure to COVID-19; Z79.01 Long term (current) use of anticoagulants; Z79.899 Other long term (current) drug therapy; Z88.2 Allergy status to sulfonamides; Z88.0 Allergy status to penicillin; Z86.718 Personal history of other venous thrombosis and embolism; I25.2 Old myocardial infarction; Z99.3 Dependence on wheelchair; Z28.21 Immunization not carried out because of patient refusal